=== PATIENT | male | born 1960 | race Caucasian/White ===

== ENCOUNTER 2016-11-18 21:05 | Emergency (ER) | payer MEDICARE ==
[2016-11-18 21:28] LABS: ABSOLUTE EOSINOPHILS # (AUTO) 0.1 10^3/uL (0.0-0.6); ABSOLUTE LYMPHOCYTES (AUTO) 1.8 10^3/uL (0.5-4.7); ABSOLUTE MONOCYTES (AUTO) 0.8 10^3/uL (0.1-1.4); ABSOLUTE NEUT (AUTO) 8.6 10^3/uL (1.7-8.2); BASOPHILS % (AUTO) 0.4 % (0-2); EOSINOPHILS % (AUTO) 0.8 % (0-6); HEMATOCRIT 49.6 % (37.9-51.0); HEMOGLOBIN 16.5 g/dL (13.5-17.0); HGB HCT DIFFERENCE -0.1; LYMPHOCYTES % (AUTO) 15.9 % (13-45); MEAN CORPUSCULAR HGB CONC 33.2 g/dL (32.0-36.0); MEAN CORPUSCULAR VOLUME 84 fl (80-97); MONOCYTES % (AUTO) 7.3 % (3-13); RED CELL DISTRIBUTION WIDTH 13.3 % (11.5-14.0); SEGMENTED NEUTROPHILS % (AUTO) 75.6 % (42-78); WHITE BLOOD COUNT 11.4 10^3/uL (4.0-10.5)
[2016-11-18] MEDS ORDERED: ASPIRIN 81 MG TABLET, CHEWABLE PO ONE (21:33)
[2016-11-18 21:43] LABS: ALANINE AMINOTRANSFERASE 56 U/L (21-72); ALBUMIN 4.4 g/dL (3.5-5.0); ALKALINE PHOSPHATASE 101 U/L (38-126); ANION GAP 15 (5-19); ASPARTATE AMINO TRANSFERASE 40 U/L (17-59); BILIRUBIN,DIRECT 0.4 mg/dL (0.0-0.4); BILIRUBIN,TOTAL 0.8 mg/dL (0.2-1.3); BLOOD UREA NITROGEN 9 mg/dL (7-20); CARBON DIOXIDE 26 mmol/L (22-30); CHLORIDE 98 mmol/L (98-107); CREATINE KINASE 62 U/L (55-170); GLUCOSE 117 mg/dL (75-110); POTASSIUM 3.6 mmol/L (3.6-5.0); TOTAL PROTEIN 7.8 g/dL (6.3-8.2)
[2016-11-18 22:04] LABS: CREATINE KINASE MB < 0.22 ng/mL (<4.55); TROPONIN I < 0.012 ng/mL
[2016-11-18] MEDS ORDERED: KETOROLAC TROMETHAMINE INJ/PF 30 MG/1 ML SDV IV ONE (22:20)
--- NOTE | 2016-11-18 22:21 | ER Document Report ---
ED General - General Chief Complaint: Chest Pain Stated Complaint: CHEST PAIN Notes: Patient is a 56-year-old male with past medical history of hypertension who presents with 3 days of intermittent left-sided chest pain. Describes it as a dull, aching pain. Nothing improves or worsens the pain. Denies a history of similar symptoms in the past. He has not seen his primary care doctor regarding these concerns. He denies any associated shortness of breath but does note that when he takes a deep breath this does worsen the pain. He has not had diaphoresis with the pain but states he has had one episode of vomiting. No history of known coronary artery disease, DVT or pulmonary embolus. TRAVEL OUTSIDE OF THE [place] IN LAST 30 DAYS: No - Related Data Allergies/Adverse Reactions: lansoprazole [From Prevacid] Allergy (Verified 01/03/15 12:05) contrast dye Allergy (Uncoded 01/03/15 12:05) Past Medical History - General Information source: Patient - Social History Smoking Status: Never Smoker Frequency of alcohol use: None Drug Abuse: None Family History: Reviewed & Not Pertinent - Past Medical History Cardiac Medical History: Reports: Hx Hypertension GI Medical History: Reports: Hx Gastroesophageal Reflux Disease, Hx Hiatal Hernia Musculoskeltal Medical History: Reports Hx Arthritis, Reports Hx Musculoskeletal Deformity, Reports Hx Musculoskeletal Trauma Skin Medical History: Reports Hx Cellulitis Past Surgical History: Reports: Hx Adenoidectomy, Hx Cardiac Catheterization, Hx Inguinal Hernia, Hx Myringotomy, Hx Orthopedic Surgery - right knee, Hx Tonsillectomy - Immunizations Immunizations up to date: No Hx Diphtheria, Pertussis, Tetanus Vaccination: No Review of Systems - Review of Systems Notes: Constitutional: Negative for fever. HENT: Negative for sore throat. Eyes: Negative for visual changes. Cardiovascular: Positive for chest pain. Respiratory: Negative for shortness of breath. Gastrointestinal: Negative for abdominal pain, vomiting or diarrhea. Genitourinary: Negative for dysuria. Musculoskeletal: Negative for back pain. Skin: Negative for rash. Neurological: Negative for headaches, weakness or numbness. 10 point ROS negative except as marked above and in HPI. Physical Exam - Vital signs Vitals: Temp 98.3 F 11/18/16 21:07 Interpretation: Tachycardic Notes: PHYSICAL EXAMINATION: GENERAL: Well-appearing, well-nourished and in no acute distress. HEAD: Atraumatic, normocephalic. EYES: Pupils equal round and reactive to light, extraocular movements intact, sclera anicteric, conjunctiva are normal. ENT: nares patent, oropharynx clear without exudates. Moist mucous membranes. NECK: Normal range of motion, supple without lymphadenopathy LUNGS: Breath sounds clear to auscultation bilaterally and equal. No wheezes rales or rhonchi. HEART: Regular rate and rhythm without murmurs ABDOMEN: Soft, nontender, normoactive bowel sounds. No guarding, no rebound. No masses appreciated. EXTREMITIES: Normal range of motion, no pitting or edema. No cyanosis. NEUROLOGICAL: No focal neurological deficits. Moves all extremities spontaneously and on command. PSYCH: Normal mood, normal affect. SKIN: Warm, Dry, normal turgor, no rashes or lesions noted. Course - Re-evaluation Re-evalutation: 11/18/16 22:20 Presentation of chest pain in an otherwise well appearing patient. Low clinical suspicion for ACS given clinical history, exam, EKG without ST elevations or depressions, and negative initial troponin. HEART score less than or equal to 3. I have a mild level of concern for possible pulmonary embolus given patient' s tachycardia and staying that the pain is worsened by deep inspiration. A d- dimer assay will be sent to better clarify and if this is negative will not proceed with any further testing. CXR without evidence of pneumothorax or pneumonia. No widened mediastinum. Aortic dissection also seems unlikely given history, symmetric pulses, CXR, and vitals. HEART Score: History:0 EC Age:1 Risk Factors:1 Troponin:0 Total: 2 11/19/16 02:11 D-dimer was elevated to 0.[address] of the chest was obtained. This is noted to be normal without any evidence of an acute pulmonary embolus. Repeat troponin is likewise normal. Final assessment: Chest pain in a patient without evidence of cardiac or other serious etiology on workup today. I discussed with patient that, based on their age, risk factors and emergency department testing today, the likelihood that their symptoms are related to a heart attack is very low (estimated risk of heart attack or over the next 30 days of less than 1%). The patient demonstrates decision making capacity and has verbalized an understanding of these risks to me. Based on this, the patient has chosen to follow-up as an outpatient. Usual chest pain return precautions reviewed. The patient states understanding and agreement with this plan. - Vital Signs Vital signs: Temp Pulse Resp BP Pulse Ox 98.3 F 15 160/92 H 99 11/18/16 21:07 11/18/16 23:01 11/18/16 23:01 11/18/16 23:01 - Laboratory Result Diagrams: 11/18/16 21:15 11/18/16 21:15 Laboratory results interpreted by me: 11/18/16 11/18/16 11/18/16 21:15 21:15 21:15 WBC 11.4 H RBC 5.90 H Absolute Neutrophils 8.6 H D-Dimer 0.61 H Glucose 117 H - Diagnostic Test Radiology reviewed: Image reviewed, Reports reviewed Radiology results interpreted by me: 11/18/16 22:21 Chest x-ray: No acute infiltrate or pneumothorax - EKG Interpretation by Me Additional EKG results interpreted by me: 11/18/16 22:21 Sinus tachycardia. Rate 111. No ST elevations or depressions. QTC is 462. Discharge - Discharge Clinical Impression: Chest pain Qualifiers: Chest pain type: unspecified Qualified Code(s): R07.9 - Chest pain, unspecified Condition: Good Disposition: HOME, SELF-CARE Additional Instructions: You were seen today for chest pain. The exact cause of your pain is unclear. However, based on your cardiac enzyme testing, chest x-ray, and EKG it does not appear that it is from an immediately life-threatening cause at this time. Although your testing here is normal is critical that you follow-up with your primary care physician for continued evaluation of this chest pain and possible stress testing. I recommended you see your physician within the next 24-48 hours to be evaluated for consideration of a stress test. Please return to emergency department immediately if you have worsening of your chest pain, shortness of breath, vomiting, become unable to exert yourself due to pain or difficulty breathing, you pass out, or have any pain that radiates into your arms, jaw, or back. Please also return if you have any additional symptoms that are concerning to you.
--- NOTE | 2016-11-18 22:41 | EKG REPORT ---
SEVERITY:- BORDERLINE ECG - SINUS TACHYCARDIA BORDERLINE T ABNORMALITIES, INFERIOR LEADS : Confirmed by: Toan Trujillo MD 18-Nov-2016 22:40:45
[2016-11-19] MEDS ORDERED: DIPHENHYDRAMINE HCL 50 MG/ML VIAL IV ONE (00:23)
[2016-11-19] MEDS ORDERED: FAMOTIDINE INJ/PF 20 MG/2 ML SDV IV ONE (00:28)
[2016-11-19] MEDS ORDERED: METHYLPREDNISOLONE INJ 125 MG/2 ML SDV IV ONE (00:28)
[2016-11-19 02:21] VITALS: BP 143/85
== END 2016-11-19 02:21 | disposition home or self-care (01) ==
LOC: ER 21:05
DX: R07.9 Chest pain, unspecified (principal); I10 Essential (primary) hypertension; Z91.041 Radiographic dye allergy status
CPT/HCPCS: 93005; 99285; 96374; 96375; 36415; 82553; 82550; 85025; 80053; 84484; 85379; 71010; 71275; 93010; J1200; J2930; J1885; S0028

== ENCOUNTER 2017-01-26 14:58 | Observation (INO) | payer MEDICARE ==
[2017-01-26 15:17] LABS: ABSOLUTE BASOPHILS # (AUTO) 0.1 10^3/uL (0.0-0.2); ABSOLUTE EOSINOPHILS # (AUTO) 0.1 10^3/uL (0.0-0.6); ABSOLUTE LYMPHOCYTES (AUTO) 1.3 10^3/uL (0.5-4.7); ABSOLUTE MONOCYTES (AUTO) 0.7 10^3/uL (0.1-1.4); ABSOLUTE NEUT (AUTO) 8.8 10^3/uL (1.7-8.2); BASOPHILS % (AUTO) 0.6 % (0-2); EOSINOPHILS % (AUTO) 0.9 % (0-6); HEMATOCRIT 44.1 % (37.9-51.0); HEMOGLOBIN 14.5 g/dL (13.5-17.0); HGB HCT DIFFERENCE -0.6; LYMPHOCYTES % (AUTO) 11.5 % (13-45); MEAN CORPUSCULAR HEMOGLOBIN 27.7 pg (27.0-33.4); MEAN CORPUSCULAR HGB CONC 32.9 g/dL (32.0-36.0); MEAN CORPUSCULAR VOLUME 84 fl (80-97); MONOCYTES % (AUTO) 6.3 % (3-13); RED BLOOD COUNT 5.24 10^6/uL (4.35-5.55); RED CELL DISTRIBUTION WIDTH 13.5 % (11.5-14.0); SEGMENTED NEUTROPHILS % (AUTO) 80.7 % (42-78)
--- NOTE | 2017-01-26 15:28 | ER Document Report ---
ED General - General Chief Complaint: Chest Pain Stated Complaint: CHEST PAIN Time Seen by Provider: 01/26/17 15:08 Notes: 57-year-old male with morbid obesity and hypertension which is untreated as well as a long smoking history presents with shortness of breath onset 3 days ago and with exertion worse with lying down and better with sitting up and associated with a dull chest pressure which is also exertional and better with sitting up. He describes "wet congestion" when he lies flat which wakes him up from sleep. He has had increasing leg swelling as well. He is currently chest pain-free. He was given nitro and aspirin in the ambulance. He did not say that this changed his symptoms. TRAVEL OUTSIDE OF THE [place] IN LAST 30 DAYS: No - Related Data Allergies/Adverse Reactions: lansoprazole [From Prevacid] Allergy (Verified 01/03/15 12:05) contrast dye Allergy (Uncoded 11/19/16 02:23) Hives Past Medical History - Social History Smoking Status: Former Smoker Family History: Reviewed & Not Pertinent - Past Medical History Cardiac Medical History: Reports: Hx Hypertension GI Medical History: Reports: Hx Gastroesophageal Reflux Disease, Hx Hiatal Hernia Musculoskeltal Medical History: Reports Hx Arthritis, Reports Hx Musculoskeletal Deformity, Reports Hx Musculoskeletal Trauma Skin Medical History: Reports Hx Cellulitis Past Surgical History: Reports: Hx Adenoidectomy, Hx Cardiac Catheterization, Hx Inguinal Hernia, Hx Myringotomy, Hx Orthopedic Surgery - right knee, Hx Tonsillectomy - Immunizations Immunizations up to date: No Hx Diphtheria, Pertussis, Tetanus Vaccination: No Physical Exam - Vital signs Vitals: Resp Pulse Ox 14 98 01/26/17 15:11 01/26/17 15:11 Course - Re-evaluation Re-evalutation: 01/26/17 15:28 57-year-old male with morbid obesity and hypertension which is untreated as well as smoking is a risk factor presents with recent onset exertional shortness of breath orthopnea paroxysmal nocturnal dyspnea and positional chest pressure. He is hypertensive in the ED. He is difficult to auscultate secondary to his morbid obesity. Believe he likely has either sent to medical hypertension or gradual onset new onset congestive heart failure. Must rule out acute coronary syndrome. EKG today shows no acute changes. Given his poor follow-up and lack of recent stress testing he should be admitted for echocardiogram and stress test. Will check BNP labs and troponin. Already got aspirin. Not currently symptomatic so will not treat hypertension at this time. 01/26/17 16:52 Clinically stable. EKG unremarkable. Troponin negative. BNP elevated, chest x -ray looks like cardiomegaly. Admitted to Dr. Quan on for new onset heart failure. - Vital Signs Vital signs: Temp Pulse Resp BP Pulse Ox 98.3 F 104 H 13 176/100 H 93 01/26/17 15:17 01/26/17 15:17 01/26/17 16:03 01/26/17 16:03 01/26/17 16:03 - Laboratory Result Diagrams: 01/26/17 15:10 01/26/17 15:40 Laboratory results interpreted by me: 01/26/17 01/26/17 01/26/17 15:10 15:40 15:40 WBC 11.0 H Seg Neutrophils % 80.7 H Lymphocytes % 11.5 L Absolute Neutrophils 8.8 H Glucose 118 H Creatine Kinase 44 L NT-Pro-B Natriuret Pep 1410 H - Diagnostic Test Radiology reviewed: Image reviewed, Reports reviewed - EKG Interpretation by Me EKG shows normal: Sinus rhythm Rate: Tachycardia When compared to previous EKG there are: No significant change Additional EKG results interpreted by me: 01/26/17 15:28 ST or T-wave changes Discharge - Discharge Clinical Impression: Congestive heart failure (CHF) Qualifiers: Congestive heart failure type: combined Congestive heart failure chronicity: acute Qualified Code(s): I50.41 - Acute combined systolic (congestive) and diastolic (congestive) heart failure Admitting Provider: Hospitalist Unit Admitted: [facility]
--- NOTE | 2017-01-26 15:53 | RADIOLOGY REPORT (SQ) ---
EXAM DESCRIPTION: CHEST SINGLE VIEW COMPLETED DATE/TIME: 01/26/2017 3:41 pm REASON FOR STUDY: bed 16 cp COMPARISON: 12/19/2016. NUMBER OF VIEWS: One view. TECHNIQUE: Single frontal radiographic view of the chest acquired. LIMITATIONS: None. FINDINGS: LUNGS AND PLEURA: No opacities, masses or pneumothorax. No pleural effusion. MEDIASTINUM AND HILAR STRUCTURES: No masses. Contour normal. HEART AND VASCULAR STRUCTURES: Heart enlarged without failure. Normal vasculature. BONES: No acute findings. HARDWARE: None in the chest. OTHER: No other significant finding. IMPRESSION: HEART ENLARGED WITHOUT FAILURE. NO OTHER SIGNIFICANT RADIOGRAPHIC FINDING IN THE CHEST. TECHNICAL DOCUMENTATION: JOB ID: [id number] [employer]- All Rights Reserved
[2017-01-26 16:25] LABS: ALANINE AMINOTRANSFERASE 27 U/L (21-72); ALBUMIN 3.7 g/dL (3.5-5.0); ALKALINE PHOSPHATASE 98 U/L (38-126); ANION GAP 13 (5-19); ASPARTATE AMINO TRANSFERASE 17 U/L (17-59); BILIRUBIN,DIRECT 0.3 mg/dL (0.0-0.4); BILIRUBIN,TOTAL 0.7 mg/dL (0.2-1.3); BLOOD UREA NITROGEN 20 mg/dL (7-20); CALCIUM 9.2 mg/dL (8.4-10.2); CARBON DIOXIDE 25 mmol/L (22-30); CHLORIDE 102 mmol/L (98-107); CREATINE KINASE 44 U/L (55-170); CREATININE RESULT 0.89 mg/dL (0.52-1.25); GLUCOSE 118 mg/dL (75-110); POTASSIUM 4.2 mmol/L (3.6-5.0); SODIUM 139.9 mmol/L (137-145); TOTAL PROTEIN 6.7 g/dL (6.3-8.2)
[2017-01-26 16:37] LABS: CREATINE KINASE MB 0.48 ng/mL (<4.55); TROPONIN I 0.026 ng/mL
[2017-01-26] MEDS ORDERED: ACETAMINOPHEN 325 MG TABLET PO PRN (17:47)
[2017-01-26] MEDS ORDERED: ONDANSETRON HCL INJ/PF 4 MG/2 ML SDV IV PRN (17:47)
[2017-01-26] MEDS ORDERED: LEVALBUTEROL HCL NEB 1.25 MG/3 ML AMPUL NEB PRN (17:47)
[2017-01-26] MEDS ORDERED: NITROGLYCERIN 0.4 MG/TAB 25 TAB/BOTTLE SL PRN (17:55)
[2017-01-26] MEDS ORDERED: HYDRALAZINE HCL INJ/PF 20 MG/1 ML SDV IV PRN (17:55)
--- NOTE | 2017-01-26 18:09 | PDOC H&P ---
History of Present Illness Admission Date/PCP: 01/26/17 17:01 Patient complains of: Chest pain and dyspnea on exertion History of Present Illness: CR TODD is a 57 year old male with morbid obesity as well as hypertension not taking any medication other than ibuprofen [id number] has been dealing with shortness of breath for a few days. Shortness of breath is noted on exertion but not at rest. There is associated cough but with minimal phlegm. There is intermittent chest discomfort and tightness with occasional wheezing. There is no diaphoresis, nausea or vomiting, chills or fever, nor abdominal pain. He denies any sore throat, chills or fever or sinus congestion as well. Patient at times will have paroxysms of coughing noted. Sometimes it is pruritic. Patient could not lay flat in bed. No increasing lower extremity edema however. Patient presents to the emergency room for evaluation due to worsening symptoms and was referred for admission. Past Medical History Past Medical History: Medication reconciliation pending verification from the patient's pharmacist. Cardiac Medical History: Reports: Hypertension Endocrine Medical History: Reports: Obesity GI Medical History: Reports: Gastroesophageal Reflux Disease, Hiatal Hernia Musculoskeltal Medical History: Reports: Arthritis Past Surgical History Past Surgical History: Reports: Cardiac Catheterization, Herniorrhaphy, Orthopedic Surgery - right knee, Tonsillectomy, Other - Carpal tunnel surgery, Social History Information Source: Patient Smoking Status: Former Smoker Frequency of Alcohol Use: None Hx Recreational Drug Use: No Drugs: None Hx Prescription Drug Abuse: No Family History Family History: CAD, CVA, Hypertension Parental Family History Reviewed: Yes Children Family History Reviewed: Yes Sibling(s) Family History Reviewed.: Yes Medication/Allergy Home Medications: Amlodipine Besylate 10 mg PO DAILY 08/30/13 Duloxetine HCl [Cymbalta] 60 mg PO DAILY 08/30/13 Lisinopril/Hydrochlorothiazide [Lisinopril-Hctz 20-12.5 mg Tab] 1 tab PO DAILY 08/30/13 Methocarbamol 750 mg PO BID PRN 08/30/13 Ranitidine HCl [Acid Payroll Examiner] 150 mg PO DAILY 08/30/13 Cholestyramine/Aspartame [Questran Light 4 gm Packet] 4 gm PO MEALSHS #60 packet 09/04/13 Hydrocodone/Acetaminophen [[place] 10-325 mg Tablet] 2 tab PO Q4H PRN #30 tablet 09/04/13 Hydrocodone Bit/Acetaminophen [Hydrocodon-Acetaminophn 10-325] 1 - 2 each PO Q6HP PRN #60 tablet 01/03/15 Allergies/Adverse Reactions: lansoprazole [From Prevacid] Allergy (Verified 01/03/15 12:05) contrast dye Allergy (Uncoded 11/19/16 02:23) Hives Review of Systems Constitutional: ABSENT: chills, fever(s), headache(s), night sweats, weakness, weight gain, weight loss Eyes: ABSENT: visual disturbances Ears: ABSENT: hearing changes Nose, Mouth, and Throat: ABSENT: headache(s), mouth pain, sore throat, vertigo Cardiovascular: PRESENT: chest pain, dyspnea on exertion, edema - Chronic, orthropnea. ABSENT: palpitations Respiratory: PRESENT: cough, dyspnea. ABSENT: hemoptysis, sputum Gastrointestinal: ABSENT: abdominal pain, constipation, diarrhea, hematemesis, hematochezia, melena, nausea, vomiting Genitourinary: ABSENT: dysuria, hematuria Musculoskeletal: ABSENT: joint swelling Integumentary: ABSENT: pruritus, rash, wounds Neurological: ABSENT: abnormal gait, abnormal speech, confusion, dizziness, focal weakness, syncope Psychiatric: ABSENT: anxiety, depression, homidical ideation, suicidal ideation Endocrine: ABSENT: cold intolerance, heat intolerance, polydipsia, polyuria Hematologic/Lymphatic: ABSENT: easy bleeding, easy bruising Allergic/Immunologic: ABSENT: seasonal rhinorrhea Physical Exam Vital Signs: Temp Pulse Resp BP Pulse Ox 98.3 F 104 H 13 176/100 H 93 01/26/17 15:17 01/26/17 15:17 01/26/17 16:03 01/26/17 16:03 01/26/17 16:03 General appearance: PRESENT: no acute distress, cooperative, morbidly obese Head exam: PRESENT: atraumatic, normocephalic Eye exam: PRESENT: conjunctiva pink, EOMI, PERRLA. ABSENT: scleral icterus Ear exam: PRESENT: normal external ear exam. ABSENT: drainage Mouth exam: PRESENT: moist, neck supple, tongue midline Throat exam: ABSENT: post pharyngeal erythema, tonsillar erythema, tonsillar exudate Neck exam: ABSENT: carotid bruit, JVD, lymphadenopathy, thyromegaly Respiratory exam: PRESENT: clear to auscultation jaime. ABSENT: rales, rhonchi, wheezes Cardiovascular exam: PRESENT: RRR, systolic murmur - Left sternal border. ABSENT: diastolic murmur, rubs Pulses: PRESENT: normal dorsalis pedis pul Vascular exam: PRESENT: normal capillary refill GI/Abdominal exam: PRESENT: normal bowel sounds, soft. ABSENT: distended - Obese, guarding, mass, organolmegaly, rebound, tenderness Rectal exam: PRESENT: deferred Extremities exam: PRESENT: full ROM, other - Trace lower extremity edema bilateral, Homans sign negative. ABSENT: calf tenderness, clubbing Neurological exam: PRESENT: alert, awake, oriented to person, oriented to place , oriented to time, oriented to situation Psychiatric exam: PRESENT: appropriate affect, normal mood. ABSENT: homicidal ideation, suicidal ideation Skin exam: PRESENT: dry, intact, warm. ABSENT: cyanosis, rash Results Impressions: Chest X-Ray 01/26/17 15:04 IMPRESSION: HEART ENLARGED WITHOUT FAILURE. NO OTHER SIGNIFICANT RADIOGRAPHIC FINDING IN THE CHEST. Assessment & Plan - Diagnosis (1) Chest pain Qualifiers: Chest pain type: unspecified Qualified Code(s): R07.9 - Chest pain, unspecified Is this a current diagnosis for this admission?: Yes (2) Shortness of breath Is this a current diagnosis for this admission?: Yes (3) Essential hypertension Is this a current diagnosis for this admission?: Yes (4) Morbid obesity Is this a current diagnosis for this admission?: Yes (5) Gastroesophageal reflux disease Qualifiers: Esophagitis presence: without esophagitis Qualified Code(s): K21.9 - Gastro-esophageal reflux disease without esophagitis Is this a current diagnosis for this admission?: Yes (6) Osteoarthritis of both knees Qualifiers: Osteoarthritis type: unspecified Qualified Code(s): M17.0 - Bilateral primary osteoarthritis of knee Is this a current diagnosis for this admission?: Yes - Time Time Spent: 50 to 70 Minutes Within: within 24 hours - Plan Summary Plan Summary: The patient will be admitted to observation. We will obtain a d-dimer, if elevated a VQ scan will be obtained. In the meantime we will check serial cardiac enzymes 3 and obtain an echocardiogram. I will resume the patient JESSIE inhibitor, begin nitroglycerin and aspirin. I will likewise put the patient on H2 receptor archana. DVT prophylaxis with Lovenox will be placed. Supplemental oxygen will be given. Further testing depends on the initial evaluation as outlined above.
[2017-01-26] MEDS ORDERED: LISINOPRIL 10 MG TABLET PO ONE (18:15)
[2017-01-26] MEDS: NITROGLYCERIN 2% OINTMENT 1 GM PACKET TP SCH (18:52)
[2017-01-26] MEDS: DOCUSATE SODIUM 100 MG CAPSULE PO SCH (18:52)
--- NOTE | 2017-01-26 19:59 | EKG REPORT ---
SEVERITY:- OTHERWISE NORMAL ECG - SINUS TACHYCARDIA : Confirmed by: Toan Trujillo MD 26-Jan-2017 19:58:31
--- NOTE | 2017-01-26 21:35 | RADIOLOGY REPORT (SQ) ---
EXAM DESCRIPTION: NM LUNG VENT/PERF SCAN COMPLETED DATE/TIME: 01/26/2017 9:17 pm REASON FOR STUDY: CHEST PAIN, SOB UPON EXERTION COMPARISON: Chest x-ray dated 01/26/2017. RADIONUCLIDE AND DOSE: 5.28 millicuries TC-99m MAA Intravenous 31.8 millicuries TC-99m DTPA Inhaled aerosol TECHNIQUE: Anterior and posterior views of the lungs acquired post ventilation of DTPA aerosol. Ant erior, posterior, and oblique views of the lungs acquired following injection of MAA. LIMITATIONS: None. FINDINGS: VENTILATION: Symmetric and homogeneous distribution of DTPA aerosol during ventilatory pha se. No significant areas of photopenia. PERFUSION: Perfusion images with normal homogenous activity and no wedge-shaped or segmental defects. No ventilation-perfusion mismatches. OTHER: No other significant finding. IMPRESSION: NORMAL VENTILATION-PERFUSION LUNG SCAN. NEGATIVE FOR PULMONARY EMBOLI. TECHNICAL DOCUMENTATION: JOB ID: [id number] [employer]- All Rights Reserved
[2017-01-26] MEDS: ASPIRIN 81 MG TABLET, CHEWABLE PO SCH (21:59)
[2017-01-26] MEDS: FAMOTIDINE INJ/PF 20 MG/2 ML SDV IV SCH (21:59)
[2017-01-26] MEDS: FUROSEMIDE INJ/PF 40 MG/4 ML SDV IV SCH (22:00)
[2017-01-27] MEDS: NITROGLYCERIN 2% OINTMENT 1 GM PACKET TP SCH ×2 (00:24→05:45)
[2017-01-27] MEDS: DOCUSATE SODIUM 100 MG CAPSULE PO SCH ×2 (09:26→17:47)
[2017-01-27] MEDS: FAMOTIDINE INJ/PF 20 MG/2 ML SDV IV SCH ×2 (09:26→22:42)
[2017-01-27] MEDS: FUROSEMIDE INJ/PF 40 MG/4 ML SDV IV SCH ×2 (09:26→22:42)
[2017-01-27] MEDS: LISINOPRIL 10 MG TABLET PO SCH (09:27)
[2017-01-27] MEDS: ENOXAPARIN SODIUM INJ 40 MG/0.4 ML DISP.SYRIN SUBCUT SCH (09:27)
[2017-01-27] MEDS: ISOSORBIDE MONONITRATE 30 MG TAB.ER.24H PO SCH (11:19)
[2017-01-27] MEDS ORDERED: METOPROLOL TARTRATE 25 MG TABLET PO ONE (12:00)
--- NOTE | 2017-01-27 14:04 | PDOC PROGRESS REPORT ---
Subjective Progress Note for:: 01/27/17 Subjective:: Slightly improved. Denies CP. [place] improved. Intermittent wheezing but no PND, orthopnea, diaphoresis, nor dizziness. Physical Exam Vital Signs: Temp Pulse Resp BP Pulse Ox 98.2 F 93 18 151/87 H 93 01/27/17 11:32 01/27/17 11:32 01/27/17 11:32 01/27/17 11:32 01/27/17 11:32 Intake & Output 01/26/17 01/27/17 01/28/17 06:59 06:59 06:59 Intake Total 700 Balance 700 Weight 165.1 kg General appearance: PRESENT: no acute distress, morbidly obese Head exam: PRESENT: normocephalic Eye exam: PRESENT: EOMI Mouth exam: PRESENT: moist, neck supple Neck exam: ABSENT: JVD Respiratory exam: PRESENT: clear to auscultation jaime - anteriorly B/L, decreased breath sounds - post B/L Cardiovascular exam: PRESENT: RRR. ABSENT: gallop GI/Abdominal exam: PRESENT: soft. ABSENT: distended, tenderness Extremities exam: PRESENT: other - trace edema Neurological exam: PRESENT: alert, awake, oriented to situation Skin exam: PRESENT: dry, warm. ABSENT: cyanosis Results Laboratory Results: 01/27/17 03:37 TSH 2.99 01/26/17 01/26/17 01/26/17 19:43 19:43 23:41 Creatine Kinase 43 L 56 Troponin I 0.023 01/26/17 01/27/17 01/27/17 23:41 03:37 03:37 Creatine Kinase 54 L Troponin I 0.029 0.025 Impressions: Chest X-Ray 01/26/17 15:04 IMPRESSION: HEART ENLARGED WITHOUT FAILURE. NO OTHER SIGNIFICANT RADIOGRAPHIC FINDING IN THE CHEST. Lung Scan-VQ NM 01/26/17 19:31 IMPRESSION: NORMAL VENTILATION-PERFUSION LUNG SCAN. NEGATIVE FOR PULMONARY EMBOLI. Assessment & Plan - Diagnosis (1) Chest pain Qualifiers: Chest pain type: unspecified Qualified Code(s): R07.9 - Chest pain, unspecified Is this a current diagnosis for this admission?: Yes (2) Shortness of breath Is this a current diagnosis for this admission?: Yes (3) Essential hypertension Is this a current diagnosis for this admission?: Yes (4) Morbid obesity Is this a current diagnosis for this admission?: Yes (5) Gastroesophageal reflux disease Qualifiers: Esophagitis presence: without esophagitis Qualified Code(s): K21.9 - Gastro-esophageal reflux disease without esophagitis Is this a current diagnosis for this admission?: Yes (6) Osteoarthritis of both knees Qualifiers: Osteoarthritis type: unspecified Qualified Code(s): M17.0 - Bilateral primary osteoarthritis of knee Is this a current diagnosis for this admission?: Yes - Time Time Spent with patient: 15-24 minutes - Plan Summary Plan Summary: D/C NTP. Begin imdur and B-archana. Try advair. Stress test as out-patient in 48 to 72 hrs.
[2017-01-27 14:45] LABS: HEMATOCRIT 43.2 % (37.9-51.0); HEMOGLOBIN 14.2 g/dL (13.5-17.0); HGB HCT DIFFERENCE -0.6; MEAN CORPUSCULAR HEMOGLOBIN 27.8 pg (27.0-33.4); MEAN CORPUSCULAR HGB CONC 32.9 g/dL (32.0-36.0); MEAN CORPUSCULAR VOLUME 84 fl (80-97); RED BLOOD COUNT 5.12 10^6/uL (4.35-5.55); RED CELL DISTRIBUTION WIDTH 13.7 % (11.5-14.0)
[2017-01-27] MEDS: FLUTICASONE/SALMETEROL DISKUS 250-50 MCG/DOSE IH SCH (17:46)
[2017-01-27] MEDS: ASPIRIN 81 MG TABLET, CHEWABLE PO SCH (22:42)
[2017-01-27] MEDS: METOPROLOL TARTRATE 25 MG TABLET PO SCH (22:42)
[2017-01-28] MEDS: FLUTICASONE/SALMETEROL DISKUS 250-50 MCG/DOSE IH SCH (05:29)
--- NOTE | 2017-01-28 09:43 | Physician Advisory Note ---
Physician Advisor ProgressNote .: Pursuant to the plan for [facility], I have reviewed the medical record for this patient. Physician Advisor Statement: Please document: 1. Reason pt couldn't go home 01/27 - need to be explicit. "Sx better but not back to baseline"? "Continued to need further IV diuretic because ____"?, "I was concerned about___"?, .... 2. If reason pt kept 01/27 was clinical need/concern (not just pt/dr convenience ), pt approp to change to Inpt status - after documenting above. Thanks! CK
[2017-01-28] MEDS: ENOXAPARIN SODIUM INJ 40 MG/0.4 ML DISP.SYRIN SUBCUT SCH (10:28)
[2017-01-28] MEDS: FUROSEMIDE INJ/PF 40 MG/4 ML SDV IV SCH (10:28)
[2017-01-28] MEDS: METOPROLOL TARTRATE 25 MG TABLET PO SCH (10:29)
[2017-01-28] MEDS: DOCUSATE SODIUM 100 MG CAPSULE PO SCH (10:29)
[2017-01-28] MEDS: FAMOTIDINE INJ/PF 20 MG/2 ML SDV IV SCH (10:29)
[2017-01-28] MEDS: LISINOPRIL 10 MG TABLET PO SCH (10:30)
[2017-01-28] MEDS: ISOSORBIDE MONONITRATE 30 MG TAB.ER.24H PO SCH (11:44)
--- NOTE | 2017-01-28 13:25 | XCELERA REPORT ---
[address] [address] Transthoracic Echocardiogram Report Name: CR TODD Age: 57 yrs Gender: Male : 1960 Patient Status: Inpatient Patient Location: [id number]\S\326\S\A Study Date: 01/28/2017 10:16 AM Height: 70 in Weight: 375 lb BSA: 2.7 m2 Procedure: A two-dimensional transthoracic echocardiogram with color flow and Doppler was performed. The study was technically difficult with many images being suboptimal in quality. Reason For Study: SOB / ELEVATED BNP History: SOB / ELEVATED BNP. Ordering Physician: ELROY SIMPSON Performed By: Ashwini Delgado Interpretation Summary The left ventricle is moderately dilated. There is mild concentric left ventricular hypertrophy. LV EF is 45% Left ventricular systolic function is mildly reduced. Doppler measurements suggest impaired left ventricular relaxation, which is associated with grade I/IV or mild diastolic dysfunction There is mild global hypokinesis of the left ventricle. There is no thrombus. The right atrium is normal. The left atrium is moderately dilated. The interatrial septum is intact with no evidence for an atrial septal defect. There is no evidence of mitral valve prolapse. There is no vegetation seen on the mitral valve. There is no mitral valve stenosis. There is a trace amount of mitral regurgitation There is no aortic valvular vegetation. There is no aortic valve stenosis There is no LVOT obstruction. No aortic regurgitation is present. There is no tricuspid stenosis. Right ventricular systolic pressure is normal. RVSP is 28 mm of Hg , with RA mean of 10. There is no pericardial effusion. MMode/2D Measurements \T\ Calculations RVDd: 3.8 cm LVIDd: 7.1 cm FS: 26.7 % EPSS: 1.7 cm IVSd: 1.2 cm LVIDs: 5.2 cm EDV(Teich): 264.1 ml LVPWd: 1.2 cm ESV(Teich): 130.1 ml EF(Teich): 50.7 % Ao root diam: 3.1 cm Ao root area: 7.5 cm2 LA dimension: 4.7 cm Doppler Measurements \T\ Calculations MV E max dennise: MV P1/2t max dennise: Ao V2 max: LV V1 max P.9 cm/sec 80.9 cm/sec 152.6 cm/sec 5.4 mmHg MV A max dennise: MV P1/2t: 51.5 msec Ao max PG: LV V1 max: 109.1 cm/sec MVA(P1/2t): 4.3 cm2 9.3 mmHg 116.0 cm/sec MV E/A: 0.74 MV dec slope: 460.6 cm/sec2 PA V2 max: TR max dennise: 103.2 cm/sec 213.9 cm/sec PA max P.3 mmHgTR max P.3 mmHg Left Ventricle The left ventricle is moderately dilated. There is mild concentric left ventricular hypertrophy. LV EF is 45%. Left ventricular systolic function is mildly reduced. Doppler measurements suggest impaired left ventricular relaxation, which is associated with grade I/IV or mild diastolic dysfunction. There is mild global hypokinesis of the left ventricle. There is no thrombus. There is no ventricular septal defect visualized. Right Ventricle The right ventricle is not well visualized secondary to technical limitations. Atria The right atrium is normal. The left atrium is moderately dilated. The interatrial septum is intact with no evidence for an atrial septal defect. Mitral Valve There is no evidence of mitral valve prolapse. There is no vegetation seen on the mitral valve. There is no mitral valve stenosis. There is a trace amount of mitral regurgitation. Aortic Valve There is no aortic valvular vegetation. There is no aortic valve stenosis. There is no LVOT obstruction. No aortic regurgitation is present. Tricuspid Valve There is no tricuspid stenosis. There is a trace amount of tricuspid regurgitation. Right ventricular systolic pressure is normal. RVSP is 28 mm of Hg , with RA mean of 10. Pulmonic Valve There is no pulmonic valvular stenosis. There is no pulmonic valvular regurgitation. Great Vessels The aortic root is normal size. Effusions There is no pericardial effusion. : ELROY SIMPSON > Sruthi Laureano
--- NOTE | 2017-01-28 16:13 | PDOC DISCHARGE SUMMARY ---
General - Admit/Disc Date/PCP Admission Date/Primary Care Provider: 01/26/17 17:47 Discharge Date: 01/28/17 - Discharge Diagnosis (1) Chest pain Is this a current diagnosis for this admission?: Yes (2) Shortness of breath Is this a current diagnosis for this admission?: Yes (3) Essential hypertension Is this a current diagnosis for this admission?: Yes (4) Morbid obesity Is this a current diagnosis for this admission?: Yes (5) Gastroesophageal reflux disease Is this a current diagnosis for this admission?: Yes (6) Osteoarthritis of both knees Is this a current diagnosis for this admission?: Yes - Additional Information Resuscitation Status: Full Code Discharge Diet: Cardiac - Low fat, low salt Discharge Activity: Activity As Tolerated, Balance Activity w/Rest Home Medications: Multivitamin [Daily Multiple Vitamin] 1 tab PO DAILY 01/27/17 Ranitidine HCl [Zantac 150 mg Tablet] 300 mg PO Q12 01/27/17 Aspirin [Aspirin 81 mg Chewable Tablet] 81 mg PO QHS tab.chew 01/28/17 Budesonide/Formoterol Fumarate [Symbicort Hfa 160-4.5 Mcg Inhaler 6 gm] 1 puff IH Q12 #1 inhaler 01/28/17 Furosemide [Lasix] 40 mg PO BID #60 tablet 01/28/17 Lisinopril [Prinivil 10 mg Tablet] 10 mg PO DAILY #30 tablet 01/28/17 Metoprolol Tartrate [Lopressor 25 mg Tablet] 25 mg PO Q12 #60 tablet 01/28/17 Nitroglycerin [Nitrostat 0.4 mg (1/150 Gr) Tabs 25/Bottle] 1 tab SL Q5MP PRN #1 bottle 01/28/17 Additional Information: Stress test as outpatient with Dr. Laureano in 2 days. History of Present Illness Patient complains of: Dyspnea on exertion and chest pain History of Present Illness: CR TODD is a 57 year old male with morbid obesity as well as hypertension not taking any medication other than ibuprofen [id number] has been dealing with shortness of breath for a few days. Shortness of breath is noted on exertion but not at rest. There is associated cough but with minimal phlegm. There is intermittent chest discomfort and tightness with occasional wheezing. There is no diaphoresis, nausea or vomiting, chills or fever, nor abdominal pain. He denies any sore throat, chills or fever or sinus congestion as well. Patient at times will have paroxysms of coughing noted. Sometimes it is pruritic. Patient could not lay flat in bed. No increasing lower extremity edema however. Patient presents to the emergency room for evaluation due to worsening symptoms and was referred for admission. Hospital Course Hospital Course: The patient was admitted to [facility] Under observation. Cardiac enzymes were obtained and they were negative for myocardial infarction. Supplemental oxygen was given. Patient was placed on aspirin. DVT prophylaxis w/ lovenox was placed. chest x-ray did not reveal any findings of fluid overload. The patient blood pressure however was elevated. He was started on beta-archana, he was continued on JESSIE inhibitor lisinopril, and nitrates were given as well. Diuretics were also given. With above measure the patient slightly improved. VQ scan of the lungs was performed showing no evidence of pulmonary embolism. A 2D echocardiogram was done showing an ejection fraction of 45%. The patient was begun on bronchodilators with Advair and reports improvement as well. The patient just had a VQ scan therefore unable to perform a stress test in the next 48-72 hours and the patient declined to stay in the hospital that long. He requested to be discharged and have it done on an outpatient basis. the patient improved. Shortness of breath on exertion improved. The rest of the hospital stays unremarkable. His case was briefly discussed with cardiology and reports he can follow-up out patient w/ him and have stress test done on sat. 01/30/17. Physical Exam Vital Signs: Temp Pulse Resp BP Pulse Ox 97.7 F 76 20 126/67 H 96 01/28/17 13:02 01/28/17 14:00 01/28/17 13:02 01/28/17 13:02 01/28/17 13:02 Intake & Output 01/27/17 01/28/17 01/29/17 06:59 06:59 06:59 Intake Total 700 2323 946 Balance 700 2323 946 Weight 165.1 kg 163.5 kg 163.5 kg General appearance: PRESENT: no acute distress, morbidly obese Head exam: PRESENT: normocephalic Eye exam: PRESENT: EOMI Mouth exam: PRESENT: moist, neck supple Neck exam: ABSENT: JVD Respiratory exam: PRESENT: clear to auscultation jaime. ABSENT: rhonchi, wheezes Cardiovascular exam: PRESENT: RRR. ABSENT: gallop GI/Abdominal exam: PRESENT: normal bowel sounds, soft. ABSENT: distended - Obese Extremities exam: PRESENT: other - Trace lower extremity edema bilateral Neurological exam: PRESENT: alert, awake, oriented to person, oriented to place , oriented to time, oriented to situation Skin exam: PRESENT: dry, warm. ABSENT: cyanosis Results Laboratory Results: 01/27/17 14:35 01/26/17 01/26/17 01/26/17 19:43 19:43 23:41 Creatine Kinase 43 L 56 Troponin I 0.023 01/26/17 01/27/17 01/27/17 23:41 03:37 03:37 Creatine Kinase 54 L Troponin I 0.029 0.025 Impressions: Chest X-Ray 01/26/17 15:04 IMPRESSION: HEART ENLARGED WITHOUT FAILURE. NO OTHER SIGNIFICANT RADIOGRAPHIC FINDING IN THE CHEST. Lung Scan[facility] 01/26/17 19:31 IMPRESSION: NORMAL VENTILATION-PERFUSION LUNG SCAN. NEGATIVE FOR PULMONARY EMBOLI. Qualifiers PATEINT BEING DISCHARGED WITH ANY OF THE FOLLOWING DIAGNOSIS?: No Plan Discharge Plan: Follow-up with primary care physician in 1 week. Follow-up with Dr. Joe in 2 days for stress test. Time Spent: Less than 30 Minutes
[2017-01-28 16:17] VITALS: BP 172/101
== END 2017-01-28 17:50 | disposition home or self-care (01) ==
LOC: ER 14:58 → EH 17:01 → UNDOADMIN 17:01 → EH 17:47 → INTOOBSV 17:47 → 3S 19:08
PROVIDERS: ADMIT Family Medicine; ATTEND Family Medicine
DX: R07.89 Other chest pain (principal); R06.02 Shortness of breath; I10 Essential (primary) hypertension; E66.01 Morbid (severe) obesity due to excess calories; K21.9 Gastro-esophageal reflux disease without esophagitis; M17.0 Bilateral primary osteoarthritis of knee; R06.09 Other forms of dyspnea; R05 Cough; R60.0 Localized edema; R06.2 Wheezing; R06.01 Orthopnea; I51.7 Cardiomegaly; Z79.899 Other long term (current) drug therapy; Z98.890 Other specified postprocedural states; Z87.891 Personal history of nicotine dependence; Z82.49 Family history of ischemic heart disease and other diseases of the circulatory system; Z79.891 Long term (current) use of opiate analgesic; Z68.43 Body mass index [BMI] 50.0-59.9, adult
CPT/HCPCS: 93005; 99285; 36415 ×2; 82553; 82550 ×2; 84443; 85025; 85027; 80053; 84484 ×2; 85379; 83880; 93306; 71010; 78582; 93010; G0378 ×4; A9540; A9567; A9270 ×12; J1940 ×3; J1650 ×2; J3490 ×4; S0028 ×3; Q9969

== ENCOUNTER 2018-03-20 03:43 | Observation (INO) | payer MEDICARE ==
[2018-03-20] MEDS ORDERED: FENTANYL CITRATE INJ/PF 100 MCG/2 ML AMPUL IV ONE (03:53)
--- NOTE | 2018-03-20 03:57 | ER Document Report ---
ED General - General Chief Complaint: Chest Pain Stated Complaint: CHEST TIGHTNESS Time Seen by Provider: 03/20/18 03:53 TRAVEL OUTSIDE OF THE [place] IN LAST 30 DAYS: No - HPI Onset: Other - A 8-year-old male presents for evaluation of tightness in the chest which he has had since yesterday, initially this patient was responsive to nitroglycerin, he took one at home however and it did not seem to improve his symptoms. He denies any fevers chills recent illnesses trauma to the chest abdominal pain diarrhea constipation or dysuria says that the tightness has persisted despite using the nitroglycerin. He decided to call for help at that time. Denies any known history of hypercholesterolemia but does have significant cardiac family history as well as hypertension for which she is untreated at this time because of poor transportation. - Related Data Allergies/Adverse Reactions: lansoprazole [From Prevacid] Adverse Reaction (Verified 03/20/18 21:40) GI upset contrast dye Allergy (Uncoded 03/20/18 09:50) Hives Past Medical History - General Information source: Patient - Social History Smoking Status: Current Every Day Smoker Family History: CAD, CVA, Hypertension - Past Medical History Cardiac Medical History: Reports: Hx Congestive Heart Failure, Hx Hypertension GI Medical History: Reports: Hx Gastroesophageal Reflux Disease, Hx Hiatal Hernia, Hx Ulcer Musculoskeletal Medical History: Reports Hx Arthritis, Reports Hx Musculoskeletal Deformity, Reports Hx Musculoskeletal Trauma Skin Medical History: Reports Hx Cellulitis Past Surgical History: Reports: Hx Adenoidectomy, Hx Cardiac Catheterization, Hx Herniorrhaphy, Hx Inguinal Hernia, Hx Myringotomy, Hx Orthopedic Surgery - right knee, Hx Tonsillectomy, Other - Carpal tunnel surgery, - Immunizations Immunizations up to date: No Hx Diphtheria, Pertussis, Tetanus Vaccination: No Review of Systems - Review of Systems -: Yes All other systems reviewed and negative Physical Exam - Vital signs Vitals: Temp Pulse Resp BP Pulse Ox 99.0 F 97 22 H 170/95 H 94 03/20/18 04:13 03/20/18 04:13 03/20/18 04:13 03/20/18 04:13 03/20/18 04:13 Interpretation: Normal, Hypertensive - General General appearance: Alert In distress: Mild - HEENT Head: Normocephalic Eyes: Normal Conjunctiva: Normal Cornea: Normal Extraocular movements intact: Yes Eyelashes: Normal Pupils: PERRL - Respiratory Respiratory status: No respiratory distress Chest status: Nontender Breath sounds: Normal Chest palpation: Normal - Cardiovascular Rhythm: Regular Heart sounds: Normal auscultation Murmur: No - Abdominal Inspection: Normal Distension: No distension Tenderness: Nontender - Back Back: Normal - Extremities General upper extremity: Normal inspection, Nontender, Normal ROM, Normal strength General lower extremity: Normal inspection, Nontender, Normal ROM, Normal strength - Neurological Neuro grossly intact: Yes Cognition: Normal Orientation: AAOx4 Eagle Coma Scale Eye Opening: Spontaneous Rogerio Coma Scale Verbal: Oriented Eagle Coma Scale Motor: Obeys Commands Eagle Coma Scale Total: 15 Speech: Normal Cranial nerves: Normal Cerebellar coordination: Normal Motor strength normal: LUE, RUE, LLE, RLE - Psychological Associated symptoms: Normal affect Course - Re-evaluation Re-evalutation: 03/20/18 03:56 Patient with likely undiagnosed hyperlipidemia poorly treated hypertension. Patient presents with tightness in the chest, given the concern for potential developing ischemia will obtain EKG will obtain troponin times two-point for cardiac monitoring will administer fentanyl for pain control as patient was unresponsive to nitroglycerin. Patient's EKG does demonstrate what looks like ST segment depressions in lead V4 , V5, V6 more pronounced than previous EKG. We will plan for this patient to undergo admission to the hospital given his concerning history, concerning story, multiple risk factors and abnormal EKG. Conservatively his heart score is approximately 5. We will plan for repeat troponin, will plan for patient to undergo admission to the hospitalist service for continued monitoring and management. Delayed entry as a result of downtime of computer system Pending repeat troponin patient was admitted to the hospitalist and signed out to oncoming physician. They agreed to admission at this time, through his time in the emergency department he had no obvious events on compliance monitor. - Vital Signs Vital signs: Temp Pulse Resp BP Pulse Ox 98.3 F 71 16 138/75 H 98 03/22/18 17:09 03/22/18 17:09 03/22/18 17:09 03/22/18 17:09 03/22/18 17:09 - Laboratory Result Diagrams: 03/20/18 04:20 03/22/18 16:18 Laboratory results interpreted by me: 03/20/18 03/20/18 04:20 04:20 Hgb 13.3 L Seg Neutrophils % 81.1 H Lymphocytes % 10.5 L Sodium 135.3 L Chloride 96 L Discharge - Discharge Clinical Impression: Shortness of breath Chest pain Qualifiers: Chest pain type: unspecified Qualified Code(s): R07.9 - Chest pain, unspecified Condition: Stable Disposition: ADMITTED INPATIENT
[2018-03-20] MEDS ORDERED: FENTANYL CITRATE INJ/PF 100 MCG/2 ML AMPUL ONE (04:17)
--- NOTE | 2018-03-20 08:21 | EKG REPORT ---
SEVERITY:- ABNORMAL ECG - SINUS TACHYCARDIA NONSPECIFIC INTRAVENTRICULAR CONDUCTION DELAY : Confirmed by: Toan Trujillo MD 20-Mar-2018 07:39:04
--- NOTE | 2018-03-20 08:34 | RADIOLOGY REPORT (SQ) ---
EXAM DESCRIPTION: CHEST 2 VIEWS COMPLETED DATE/TIME: 03/20/2018 8:19 am REASON FOR STUDY: chest pain COMPARISON: AP chest 01/26/2017, 08/31/2013 CT angio chest 11/19/2016 EXAM PARAMETERS: NUMBER OF VIEWS: two views TECHNIQUE: Digital Frontal and Lateral radiographic views of the chest acquired. RADIATION DOSE: NA LIMITATIONS: none FINDINGS: LUNGS AND PLEURA: Pulmonary vascular congestion with mild interstitial edema. No pleural effusions or pneumothorax MEDIASTINUM AND HILAR STRUCTURES: No masses or contour abnormalities. HEART AND VASCULAR STRUCTURES: Mild cardiomegaly BONES: No acute findings. HARDWARE: None in the chest. OTHER: No other significant finding. IMPRESSION: Pulmonary vascular congestion with mild interstitial edema with Mona lines TECHNICAL DOCUMENTATION: JOB ID: [id number] [employer]- All Rights Reserved Reading location - IP/workstation name: [email or web address]
[2018-03-20 09:18] LABS: ABSOLUTE BASOPHILS # (AUTO) 0.1 10^3/uL (0.0-0.2); ABSOLUTE MONOCYTES (AUTO) 0.7 10^3/uL (0.1-1.4); ABSOLUTE NEUT (AUTO) 7.6 10^3/uL (1.7-8.2); BASOPHILS % (AUTO) 0.7 % (0-2); EOSINOPHILS % (AUTO) 0.5 % (0-6); HEMATOCRIT 39.6 % (37.9-51.0); HEMOGLOBIN 13.3 g/dL (13.5-17.0); LYMPHOCYTES % (AUTO) 10.5 % (13-45); MEAN CORPUSCULAR HEMOGLOBIN 27.8 pg (27.0-33.4); MEAN CORPUSCULAR HGB CONC 33.7 g/dL (32.0-36.0); MEAN CORPUSCULAR VOLUME 83 fl (80-97); MONOCYTES % (AUTO) 7.2 % (3-13); PLATELET COUNT 235 10^3/uL (150-450); RED CELL DISTRIBUTION WIDTH 13.4 % (11.5-14.0); SEGMENTED NEUTROPHILS % (AUTO) 81.1 % (42-78); TOTAL CELLS COUNTED % (AUTO) 100 %; WHITE BLOOD COUNT 9.3 10^3/uL (4.0-10.5)
[2018-03-20 09:30] LABS: ALANINE AMINOTRANSFERASE 26 U/L (21-72); ALBUMIN 3.6 g/dL (3.5-5.0); ALKALINE PHOSPHATASE 90 U/L (38-126); ANION GAP 12 (5-19); ASPARTATE AMINO TRANSFERASE 23 U/L (17-59); BILIRUBIN,DIRECT 0.4 mg/dL (0.0-0.4); BILIRUBIN,TOTAL 0.6 mg/dL (0.2-1.3); BLOOD UREA NITROGEN 13 mg/dL (7-20); CALCIUM 8.8 mg/dL (8.4-10.2); CARBON DIOXIDE 27 mmol/L (22-30); CHLORIDE 96 mmol/L (98-107); CREATINE KINASE 83 U/L (55-170); CREATINE KINASE MB 0.54 ng/mL (<4.55); GLUCOSE 101 mg/dL (75-110); POTASSIUM 4.3 mmol/L (3.6-5.0); SODIUM 135.3 mmol/L (137-145); TOTAL PROTEIN 6.6 g/dL (6.3-8.2); TROPONIN I 0.03 ng/mL
[2018-03-20] MEDS: ASPIRIN 81 MG TABLET, ENT COATED PO SCH (10:23)
--- NOTE | 2018-03-20 19:53 | XCELERA REPORT ---
[address] [address] Transthoracic Echocardiogram Report Name: CR TODD Age: 58 yrs Gender: Male : 1960 Patient Status: Inpatient Patient Location: [address] [place], [place] [id number] Study Date: 03/20/2018 11:31 AM Height: 70 in Weight: 360 lb BSA: 2.7 m2 Procedure: A complete two-dimensional transthoracic echocardiogram was performed (2D, M-mode, spectral and color flow Doppler). The study was technically difficult with many images being suboptimal in quality. Reason For Study: chest pain, pulmonary edema Ordering Physician: SHAHEEN MCHUGH Performed By: Ashwini Delgado Interpretation Summary Left ventricular systolic function is moderately reduced. The Ejection Fraction estimate is 40-45% The left ventricle is borderline dilated. There is mild concentric left ventricular hypertrophy. Doppler measurements suggest reversible restrictive left ventricular relaxation, which is associated with grade III/IV or moderate diastolic dysfunction There is mild to moderate global hypokinesis of the left ventricle. The right ventricular systolic function is normal. The right atrium is mild to moderately dilated. The left atrium is moderately dilated. There is a mild amount of mitral regurgitation There is no mitral valve stenosis. There is a trace amount of aortic regurgitation There is no aortic valve stenosis There is a trace or physiologic amount of tricuspid regurgitation Tricuspid regurgitation jet envelope not well defined to measure RV systolic pressure accurately. The aortic root is not well visualized. The inferior vena cava appeared normal and decreased > 50% with respiration (RAP 5-10 mmHg) There is no pericardial effusion. MMode/2D Measurements & Calculations RVDd: 3.8 cm LVIDd: 5.7 cm FS: 16.2 % EPSS: 1.8 cm IVSd: 1.2 cm LVIDs: 4.8 cm EDV(Teich): 159.7 ml LVPWd: 1.2 cm ESV(Teich): 106.1 ml EF(Teich): 33.5 % Ao root diam: 3.2 cm Ao root area: 8.0 cm2 LA dimension: 4.6 cm Doppler Measurements & Calculations MV E max dennise: MV P1/2t max dennise: Ao V2 max: LV V1 max P.2 cm/sec 100.7 cm/sec 151.3 cm/sec 4.0 mmHg MV A max dennise: MV P1/2t: 41.0 msec Ao max P.2 mmHgLV V1 max: 49.9 cm/sec MVA(P1/2t): 5.4 cm2 99.7 cm/sec MV E/A: 2.0 MV dec slope: 718.9 cm/sec2 MV dec time: 0.14 sec PA V2 max: TR max dennise: MV P1/2t-pr_phl: 86.9 cm/sec 217.2 cm/sec 41.0 msec PA max P.0 mmHg TR max P.9 mmHg Left Ventricle The left ventricle is borderline dilated. There is mild concentric left ventricular hypertrophy. Left ventricular systolic function is moderately reduced. The Ejection Fraction estimate is 40-45%. Doppler measurements suggest reversible restrictive left ventricular relaxation, which is associated with grade III/IV or moderate diastolic dysfunction. There is mild to moderate global hypokinesis of the left ventricle. Right Ventricle The right ventricle is grossly normal size. There is normal right ventricular wall thickness. The right ventricular systolic function is normal. Atria The right atrium is mild to moderately dilated. The left atrium is moderately dilated. Interarterial septum not well visualized and not well dopplered. Cannot comment on ASD/PFO presence. Mitral Valve The mitral valve leaflets are sclerotic, but show no functional abnormalities. There is no mitral valve stenosis. There is a mild amount of mitral regurgitation. Aortic Valve The aortic valve is not well visualized secondary to technical limitations. There is no aortic valve stenosis. There is a trace amount of aortic regurgitation. Tricuspid Valve The tricuspid valve is not well visualized secondary to technical limitations. There is no tricuspid stenosis. There is a trace or physiologic amount of tricuspid regurgitation. Tricuspid regurgitation jet envelope not well defined to measure RV systolic pressure accurately. Pulmonic Valve The pulmonic valve is not well visualized. Great Vessels The aortic root is not well visualized. The inferior vena cava appeared normal and decreased > 50% with respiration (RAP 5-10 mmHg). Effusions There is no pericardial effusion. : SHAHEEN MCHUGH > Amarilys Valdovinos
[2018-03-20] MEDS: HYDROCODONE/ACETAMINOPHEN 5-325 MG TABLET PO PRN (21:07)
--- NOTE | 2018-03-20 23:31 | PDOC CONSULTATION ---
Consultation Consult Date: 03/20/18 Attending physician:: TOÑA KULKARNI Consult reason:: Chest pain History of Present Illness Admission Date/PCP: 03/20/18 09:30 Patient complains of: Chest pain History of Present Illness: CR TODD is a 58 year old male admitted through the emergency room for evaluation of tightness in the chest which he has had since yesterday, initially this patient was responsive to nitroglycerin, he took one at home however and it did not seem to improve his symptoms. He denies any fevers chills recent illnesses trauma to the chest abdominal pain diarrhea constipation or dysuria says that the tightness has persisted despite using the nitroglycerin. He decided to call for help at that time. Denies any known history of hypercholesterolemia but does have significant cardiac family history as well as hypertension for which he is untreated at this time because of poor transportation. This history was reviewed. In addition, patient describes history of prior heart catheterization many years ago in a different state and was told that he has no blockages. Past Medical History Cardiac Medical History: Reports: Congestive Heart Failure, Hypertension GI Medical History: Reports: Gastroesophageal Reflux Disease, Hiatal Hernia Musculoskeltal Medical History: Reports: Arthritis Past Surgical History Past Surgical History: Reports: Cardiac Catheterization, Herniorrhaphy, Orthopedic Surgery - right knee, Tonsillectomy, Other - Carpal tunnel surgery, Social History Information Source: Patient Smoking Status: Former Smoker Frequency of Alcohol Use: None Hx Recreational Drug Use: No Drugs: None Hx Prescription Drug Abuse: No - Advance Directive Resuscitation Status: Full Code Family History Family History: CAD, CVA, Hypertension Parental Family History Reviewed: Yes Children Family History Reviewed: Yes Sibling(s) Family History Reviewed.: Yes Medication/Allergy Home Medications: Ranitidine HCl [Zantac 150 mg Tablet] 150 mg PO BID 01/27/17 Kratom 03/20/18 Allergies/Adverse Reactions: lansoprazole [From Prevacid] Adverse Reaction (Verified 03/20/18 21:40) GI upset contrast dye Allergy (Uncoded 03/20/18 09:50) Hives Review of Systems Review of Systems: Please see history of present illness and past medical history as wall. Constitutional: No fever or chills reported. Head : No recent chronic headaches, recent head injury. Eyes: No recent eye pain, diplopia, redness, discharge, acute visual changes. Ears: No recent chronic ear pain, acute hearing loss, ear discharge. Oral cavity: No recent ulcerations, bleeding, oral cavity discomfort. Neck: No recent acute neck pain reported. Hematologic: No recent easy bruising or bleeding. Lymphatic: No recent lymph node enlargement reported. Cardiovascular system review: See history of present illness. Respiratory system review: No hemoptysis or blood clots in the lungs reported. Shortness of breath on exertion Gastrointestinal system review: Negative for any recent acute hematemesis, melena. Genitourinary system review: No recent acute or chronic hematuria, flank pain, UTI etc. reported. Skin system review: Negative for any recent abnormal bruising, no rash, no pruritus reported. Neurologic: No prior history of strokes, mini strokes, seizure disorder. Psychologic: No history of major psychosis or major depression reported. Musculoskeletal: Minor aches and pains reported. No acute joint swelling reported. Patient has some difficulty with ambulation and walks with a cane. Endocrine: No recent polyuria, polydipsia, recent heat or cold intolerance. Physical Exam Vital Signs: Temp Pulse Resp BP Pulse Ox 97.7 F 82 19 178/87 H 97 03/20/18 19:28 03/20/18 19:28 03/20/18 19:28 03/20/18 19:28 03/20/18 19:28 Intake & Output 03/19/18 03/20/18 03/21/18 06:59 06:59 06:59 Intake Total 549 Output Total 1 Balance 548 Weight 151.2 kg Exam: GENERAL: well-nourished and in no acute distress. Alert and oriented x3 HEAD: Atraumatic, normocephalic. EYES: Pupils equal round and reactive to light, extraocular movements intact, sclera anicteric, conjunctiva are normal. ENT: TMs normal, nares patent, oropharynx clear without exudates. Moist mucous membranes. No oral ulcerations or bleeding gums noted NECK: supple without lymphadenopathy. Trachea is central. No cervical or axillary lymphadenopathy noted. Carotids are 2+, JVD WNL LUNGS: Respiration seems nonlabored, no significant accessory muscle action noted. Breath sounds clear to auscultation bilaterally and equal noted. No wheezes rales or rhonchi noted. No significant dullness noted on percussion. CHEST: Palpation of the chest wall shows no significant chest wall tenderness. HEART: [place] [employer], No PSH, 1/6 ASHLEIGH aortic area, 1/6 hall systolic murmur mitral area, no rubs, no gallops. ABDOMEN: Soft, no significant tenderness appreciated, normoactive bowel sounds. No guarding, no rebound. No rigidity noted . No masses appreciated. EXTREMITIES: Pedal pulses are 1-2+, no calf tenderness noted. No clubbing or cyanosis. 1+ pedal edema noted NEUROLOGICAL: Focused neurological exam showed no significant neurologic deficit. Normal speech, no focal weakness appreciated. PSYCH: Normal mood, normal affect. Judgment and insight within normal limits. SKIN: No significant ecchymosis, skin is noted to be warm. MUSCULOSKELETAL EXAM: No significant acute joint swelling noted. Results Laboratory Results: 03/20/18 15:44 Troponin I 0.024 EKG Comments: Sinus rhythm, no acute ST-T wave changes are noted Impressions: Chest X-Ray 03/20/18 03:54 IMPRESSION: Pulmonary vascular congestion with mild interstitial edema with Mona lines Assessment & Plan - Diagnosis (1) Chest pain Qualifiers: Chest pain type: unspecified Qualified Code(s): R07.9 - Chest pain, unspecified Is this a current diagnosis for this admission?: Yes (2) Congestive heart failure (CHF) Qualifiers: Qualified Code(s): I50.41 - Acute combined systolic (congestive) and diastolic (congestive) heart failure Is this a current diagnosis for this admission?: Yes (3) Essential hypertension Is this a current diagnosis for this admission?: Yes (4) Gastroesophageal reflux disease Qualifiers: Esophagitis presence: without esophagitis Qualified Code(s): K21.9 - Gastro -esophageal reflux disease without esophagitis Is this a current diagnosis for this admission?: Yes (5) Morbid obesity Is this a current diagnosis for this admission?: Yes (6) Shortness of breath Is this a current diagnosis for this admission?: Yes (7) Osteoarthritis of both knees Qualifiers: Osteoarthritis type: unspecified Qualified Code(s): M17.0 - Bilateral primary osteoarthritis of knee Is this a current diagnosis for this admission?: Yes - Notes Notes: Patient to be evaluated further with a 2D echocardiogram and nuclear stress test. These were scheduled. Chest pain: There are multiple differential diagnosis which includes cardiac ischemic syndrome, gastroesophageal reflux, possible pulmonary embolism, musculoskeletal pain etc. Feel that patient will benefit from nuclear stress test. This was scheduled. Patient also scheduled for a 2D echo for risk stratification. CHF: Have ordered a 2D echo. Further plans will follow results of 2D echo. Hypertension: Blood pressure goal should be 135/85 or less in this young gentleman. Obesity: Patient will benefit from gradual weight loss. This was explained. Gastroesophageal reflux: Patient will benefit from weight loss, other measures to reduce reflux symptoms. Osteoarthritis of the knee: Again weight loss will help. - Time Time Spent: 30 to 50 Minutes - More than 50% of the time spent coordinating care , discussing management plans with involved caregivers. Management plans discussed with involved personnels. Medical decision making was of moderate to high complexity, patient's has multiple comorbidities. Medications reviewed and adjusted accordingly: Yes
[2018-03-21] MEDS ORDERED: LANSOPRAZOLE 30 MG TAB.RAP.DR PO SCH (06:00)
--- NOTE | 2018-03-21 06:19 | PDOC H&P ---
History of Present Illness Admission Date/PCP: 03/20/18 09:30 History of Present Illness: CR TODD is a 58 year old male who states that he has been having significant chest discomfort and dyspnea. He states that the discomfort is like a tight band around his chest and is accompanied by shortness of breath. He states that he has had a couple of episodes of this discomfort. He states that the discomfort is a 3-7/10. It lasts 30 minutes to an hour. There are no provocative or palliative factors. There is no radiation. He is short of breath with it. He denies nausea, but admits that he is diaphoretic. Past Medical History Cardiac Medical History: Reports: Congestive Heart Failure, Hypertension GI Medical History: Reports: Gastroesophageal Reflux Disease, Hiatal Hernia Musculoskeltal Medical History: Reports: Arthritis Past Surgical History Past Surgical History: Reports: Cardiac Catheterization, Herniorrhaphy, Orthopedic Surgery - right knee, Tonsillectomy, Other - Carpal tunnel surgery, Social History Smoking Status: Former Smoker Frequency of Alcohol Use: None Hx Recreational Drug Use: No Drugs: None Hx Prescription Drug Abuse: No - Advance Directive Resuscitation Status: Full Code Family History Family History: CAD, CVA, Hypertension Parental Family History Reviewed: Yes Children Family History Reviewed: Yes Sibling(s) Family History Reviewed.: Yes Medication/Allergy Home Medications: Ranitidine HCl [Zantac 150 mg Tablet] 150 mg PO BID 01/27/17 Kratom 03/20/18 Allergies/Adverse Reactions: lansoprazole [From Prevacid] Adverse Reaction (Verified 03/20/18 21:40) GI upset contrast dye Allergy (Uncoded 03/20/18 09:50) Hives Review of Systems Constitutional: ABSENT: chills, fatigue, fever(s) Eyes: ABSENT: visual disturbances Ears: ABSENT: hearing changes Nose, Mouth, and Throat: ABSENT: headache(s), sore throat, vertigo Cardiovascular: PRESENT: chest pain, dyspnea on exertion, edema. ABSENT: orthropnea, palpitations Respiratory: PRESENT: dyspnea. ABSENT: cough, hemoptysis, sputum Gastrointestinal: ABSENT: constipation, diarrhea, dysphagia, nausea, vomiting Genitourinary: ABSENT: difficulty urinating, dysuria Musculoskeletal: ABSENT: deformity, joint swelling, muscle weakness Integumentary: ABSENT: lesions, rash, wounds Neurological: ABSENT: abnormal speech, confusion, frequent falls, paresthesias, syncope, vertigo Psychiatric: ABSENT: anxiety, depression Endocrine: ABSENT: cold intolerance, heat intolerance, polyphagia, polyuria Hematologic/Lymphatic: ABSENT: easy bleeding, easy bruising Physical Exam Vital Signs: Temp Pulse Resp BP Pulse Ox 97.5 F 68 15 162/85 H 98 03/21/18 03:35 03/21/18 03:35 03/21/18 03:35 03/21/18 03:35 03/21/18 03:35 Intake & Output 03/19/18 03/20/18 03/21/18 06:59 06:59 06:59 Intake Total 849 Output Total 1 Balance 848 Weight 151.2 kg General appearance: PRESENT: no acute distress, cooperative, morbidly obese Head exam: PRESENT: atraumatic, normocephalic Eye exam: PRESENT: EOMI, PERRLA. ABSENT: conjunctival injection, scleral icterus Ear exam: PRESENT: normal external ear exam. ABSENT: bleeding, drainage Mouth exam: PRESENT: moist, neck supple, tongue midline Neck exam: ABSENT: JVD, lymphadenopathy, tenderness, thyromegaly Respiratory exam: PRESENT: other - No increased work of breathing.. ABSENT: rales, rhonchi, wheezes Cardiovascular exam: PRESENT: RRR. ABSENT: gallop, systolic murmur Pulses: PRESENT: normal carotid pulses, normal dorsalis pedis pul GI/Abdominal exam: PRESENT: soft, other - The abdomen is morbidly obese. Bowel sounds are distant. I am unable to evaluate the abdomen for organomegaly, masses , or hernias due to the body habitus.. ABSENT: distended, tenderness Extremities exam: ABSENT: clubbing, joint swelling, pedal edema, tenderness Musculoskeletal exam: ABSENT: deformity, dislocation, normal inspection, tenderness Neurological exam: PRESENT: alert, awake, oriented to person, oriented to place , oriented to time, oriented to situation, CN II-XII grossly intact. ABSENT: motor sensory deficit Psychiatric exam: PRESENT: appropriate affect, normal mood Skin exam: PRESENT: dry, intact, warm Results Laboratory Results: 03/20/18 15:44 Troponin I 0.024 Impressions: Chest X-Ray 03/20/18 03:54 IMPRESSION: Pulmonary vascular congestion with mild interstitial edema with Mona lines Assessment & Plan - Diagnosis (1) Chest pain Qualifiers: Chest pain type: unspecified Qualified Code(s): R07.9 - Chest pain, unspecified (2) Congestive heart failure (CHF) Qualifiers: Qualified Code(s): I50.41 - Acute combined systolic (congestive) and diastolic (congestive) heart failure (4) Gastroesophageal reflux disease Qualifiers: Esophagitis presence: without esophagitis Qualified Code(s): K21.9 - Gastro -esophageal reflux disease without esophagitis (6) Osteoarthritis of both knees Qualifiers: Osteoarthritis type: unspecified Qualified Code(s): M17.0 - Bilateral primary osteoarthritis of knee - Time Time Spent: 50 to 70 Minutes Medications reviewed and adjusted accordingly: Yes - Inpatient Certification Based on my medical assessment, after consideration of the patient's comorbidities, presenting symptoms, or acuity I expect that the services needed warrant INPATIENT care.: No I certify that my determination is in accordance with my understanding of Medicare's requirements for reasonable and necessary INPATIENT services [42 CFR 412.3e].: No Medical Necessity: Significant Comorbidiites Make Outpatient Treatment Too Risky , Need Close Monitoring Due to Risk of Patient Decompensation, Risk of Complication if Not Cared For in Hospital - Plan Summary Plan Summary: The patient will be admitted to a telemetry bed. He will be ruled out for OK by EKG and enzyme criteria. Cardiology will be consulted and he will undergo a nuclear medicine stress test.
[2018-03-21] MEDS: ASPIRIN 81 MG TABLET, ENT COATED PO SCH (11:20)
[2018-03-21] MEDS: HYDROCODONE/ACETAMINOPHEN 5-325 MG TABLET PO PRN ×2 (11:20→19:46)
[2018-03-21] MEDS ORDERED: REGADENOSON INJ 0.4 MG/5 ML DISP.SYRIN IV ONE (14:58)
--- NOTE | 2018-03-21 23:11 | PDOC PROGRESS REPORT ---
Subjective Progress Note for:: 03/21/18 Subjective:: Patient had stress part performed today. He will have the rest part performed tomorrow. Patient currently is stable without any significant symptoms. Reason For Visit: CHEST TIGHTNESS Physical Exam Vital Signs: Temp Pulse Resp BP Pulse Ox 98.5 F 88 19 158/73 H 97 03/21/18 15:24 03/21/18 19:00 03/21/18 15:24 03/21/18 15:24 03/21/18 15:24 Intake & Output 03/20/18 03/21/18 03/22/18 06:59 06:59 06:59 Intake Total 849 474 Output Total 1 1 Balance 848 473 Weight 151.2 kg Exam: GENERAL: well-nourished and in no acute distress. Alert and oriented x3 HEAD: Atraumatic, normocephalic. EYES: Pupils equal round and reactive to light, extraocular movements intact, sclera anicteric, conjunctiva are normal. ENT: TMs normal, nares patent, oropharynx clear without exudates. Moist mucous membranes. No oral ulcerations or bleeding gums noted NECK: supple without lymphadenopathy. Trachea is central. No cervical or axillary lymphadenopathy noted. Carotids are 2+, JVD WNL LUNGS: Respiration seems nonlabored, no significant accessory muscle action noted. Breath sounds clear to auscultation bilaterally and equal noted. No wheezes rales or rhonchi noted. No significant dullness noted on percussion. CHEST: Palpation of the chest wall shows no significant chest wall tenderness. HEART: [place] [employer], No PSH, 1/6 ASHLEIGH aortic area, 1/6 hall systolic murmur mitral area, no rubs, no gallops. ABDOMEN: Soft, no significant tenderness appreciated, normoactive bowel sounds. No guarding, no rebound. No rigidity noted . No masses appreciated. EXTREMITIES: Pedal pulses are 1-2+, no calf tenderness noted. No clubbing or cyanosis. 1+ pedal edema noted NEUROLOGICAL: Focused neurological exam showed no significant neurologic deficit. Normal speech, no focal weakness appreciated. PSYCH: Normal mood, normal affect. Judgment and insight within normal limits. SKIN: No significant ecchymosis, skin is noted to be warm. MUSCULOSKELETAL EXAM: No significant acute joint swelling noted. Results Laboratory Results: 03/20/18 15:44 Troponin I 0.024 EKG Comments: Telemetry shows sinus rhythm without any sustained tachycardia or bradycardia Impressions: Chest X-Ray 03/20/18 03:54 IMPRESSION: Pulmonary vascular congestion with mild interstitial edema with [place] lines Assessment & Plan - Diagnosis (1) Chest pain Qualifiers: Chest pain type: unspecified Qualified Code(s): R07.9 - Chest pain, unspecified Is this a current diagnosis for this admission?: Yes (2) Congestive heart failure (CHF) Is this a current diagnosis for this admission?: Yes (3) Essential hypertension Is this a current diagnosis for this admission?: Yes (4) Gastroesophageal reflux disease Qualifiers: Esophagitis presence: without esophagitis Qualified Code(s): K21.9 - Gastro -esophageal reflux disease without esophagitis Is this a current diagnosis for this admission?: Yes (5) Morbid obesity Is this a current diagnosis for this admission?: Yes (6) Osteoarthritis of both knees Qualifiers: Osteoarthritis type: unspecified Qualified Code(s): M17.0 - Bilateral primary osteoarthritis of knee Is this a current diagnosis for this admission?: Yes (7) Shortness of breath Is this a current diagnosis for this admission?: Yes - Notes Notes: Patient generally stable. Patient medical regimen reviewed and is noted to be fairly satisfactory will try optimize this further. Patient to report any recurrence of chest pains. Chest pain: There are multiple differential diagnosis which includes cardiac ischemic syndrome, gastroesophageal reflux, possible pulmonary embolism, musculoskeletal pain etc. Feel that patient will benefit from nuclear stress test. Patient had the stress part performed today. Will have rest part tomorrow. Further assessment after the fold images are processed.. CHF: 2D echo shows combination of systolic and diastolic dysfunction. These were discussed with the patient discussed that treatment of sleep apnea and weight loss might help his heart condition.. Hypertension: Blood pressure goal should be 135/85 or less in this young gentleman. Obesity: Patient will benefit from gradual weight loss. This was explained. Gastroesophageal reflux: Patient will benefit from weight loss, other measures to reduce reflux symptoms. Osteoarthritis of the knee: Again weight loss will help. - Time Time with patient: Greater than 35 minutes - Patient was seen multiple times. In the morning nuclear stress test was explained to the patient in detail risk benefits were discussed. In the afternoon patient was seen just to confirm that he was doing fine after the stress test. 2D echo results were also discussed. Medications reviewed and adjusted accordingly: Yes
--- NOTE | 2018-03-22 08:50 | PDOC PROGRESS REPORT ---
Subjective Progress Note for:: 03/21/18 Subjective:: The patient states that he has had some minor feelings of chest tightness. Otherwise he has no new complaints. Reason For Visit: CHEST TIGHTNESS Physical Exam Vital Signs: Temp Pulse Resp BP Pulse Ox 99.3 F 90 14 182/109 H 98 03/22/18 07:42 03/22/18 07:42 03/22/18 07:42 03/22/18 07:42 03/22/18 07:42 Intake & Output 03/21/18 03/22/18 03/23/18 06:59 06:59 06:59 Intake Total 849 858 Output Total 1 1 Balance 848 857 Weight 151.2 kg General appearance: PRESENT: no acute distress, cooperative Respiratory exam: PRESENT: other - No increased work of breathing.. ABSENT: rales, rhonchi, wheezes Cardiovascular exam: PRESENT: RRR, other - No lateral PMI. No thrills.. ABSENT : gallop, rubs, systolic murmur Pulses: PRESENT: other - diminished distal pulses. GI/Abdominal exam: PRESENT: other - The abdomen is morbidly obese. Bowel sounds are distant. I am unable to evaluate the patient's abdomen for organomegaly, masses, or hernias cue to the patient's body habitus. Extremities exam: PRESENT: pedal edema. ABSENT: clubbing, tenderness Musculoskeletal exam: PRESENT: normal inspection. ABSENT: deformity, dislocation, tenderness Neurological exam: PRESENT: alert, awake, oriented to person, oriented to place , oriented to time, oriented to situation, CN II-XII grossly intact. ABSENT: motor sensory deficit Psychiatric exam: PRESENT: appropriate affect, normal mood Skin exam: PRESENT: dry, intact, warm Results Laboratory Results: 03/20/18 15:44 Troponin I 0.024 Impressions: Chest X-Ray 03/20/18 03:54 IMPRESSION: Pulmonary vascular congestion with mild interstitial edema with Mona lines Assessment & Plan - Diagnosis (1) Chest pain Qualifiers: Chest pain type: unspecified Qualified Code(s): R07.9 - Chest pain, unspecified Is this a current diagnosis for this admission?: Yes Plan: Part 2 of two day nuclear medicine scan tomorrow. (2) Congestive heart failure (CHF) Qualifiers: Qualified Code(s): I50.41 - Acute combined systolic (congestive) and diastolic (congestive) heart failure Is this a current diagnosis for this admission?: Yes Plan: Stable. Monitor volume status and continue home medications as necessary. (3) Essential hypertension Is this a current diagnosis for this admission?: Yes Plan: Add lisinopril and low dose beta archana. (4) Gastroesophageal reflux disease Qualifiers: Esophagitis presence: without esophagitis Qualified Code(s): K21.9 - Gastro -esophageal reflux disease without esophagitis Is this a current diagnosis for this admission?: Yes Plan: PPI (5) Morbid obesity Is this a current diagnosis for this admission?: Yes Plan: Lifestyle modification advised. (6) Osteoarthritis of both knees Qualifiers: Osteoarthritis type: unspecified Qualified Code(s): M17.0 - Bilateral primary osteoarthritis of knee Is this a current diagnosis for this admission?: Yes Plan: Limits mobility and activity (7) Shortness of breath Is this a current diagnosis for this admission?: Yes Plan: DDx: CHF exac, hypertensive heart disease, deconditioning. - Time Time Spent with patient: 25-34 minutes
[2018-03-22] MEDS: HYDROCODONE/ACETAMINOPHEN 5-325 MG TABLET PO PRN ×2 (09:27→17:28)
[2018-03-22] MEDS ORDERED: METOPROLOL TARTRATE 25 MG TABLET PO SCH (10:00)
[2018-03-22] MEDS ORDERED: FAMOTIDINE 20 MG TABLET PO SCH ×2 (10:00→22:00)
[2018-03-22] MEDS ORDERED: (PENDING PHARMACY ID) (Ranitidine Hcl [Zantac 150 Mg Tablet] 150 MG) PO SCH (10:00)
[2018-03-22] MEDS ORDERED: LISINOPRIL 10 MG TABLET PO SCH (10:00)
[2018-03-22] MEDS: ASPIRIN 81 MG TABLET, ENT COATED PO SCH (11:53)
--- NOTE | 2018-03-22 15:07 | DRAGON STRESS TEST REPORT ---
INTRAVENOUS LEXISCAN CARDIOLITE STRESS TEST USING SINGLE PHOTON EMMISION COMPUTERIZED TOMOGRAPHIC. DATE OF PROCEDURE: March 21, 2018, INDICATION : Chest pain CARDIAC RISK FACTORS: Hypertension RESTING EKG: Sinus rhythm, increased QRS voltage suggestive of LVH STRESS EKG: No significant ST segment changes noted with LexiScan bolus REASON FOR TERMINATION: Protocol. PROCEDURE REPORT: Baseline heart rate 93 beats per minute with blood pressure of 174/96. Patient had no significant complaints. Patient was bolused with Lexiscan 0.4 mg intravenously followed by saline bolus. Heart rate at 2 minutes post bolus 104 with a blood pressure of 159/94. 3 minutes post bolus heart rate 102 with blood pressure of 168/97. No significant EKG changes were noted. Patient had no significant complaints during the procedure or postprocedure. CONCLUSIONS: Normal EKG and hemodynamic response to IV LexiScan. NUCLEAR DATA: At rest the patient was given 42.6 millicuries of technetium 99 sestamibi injected intravenously. As per protocol rest gated SPECT images were obtained. On day of stress test, the patient was given intravenous LexiScan at a dose of 0.4 mg in 5 mL intravenously, followed by flush with normal saline. Subsequently the stress dose of 40.1 millicuries of technetium 99 sestamibi was injected intravenously. As per protocol stress gated images were obtained. NUCLEAR INTERPRETATION: Both raw and processed data were used for interpretation. Visual, qualitative, computer-generated quantitative data was used. There was good myocardial uptake of technetium compound. Motion artifact and soft tissue attenuations were noted. Increased visceral uptake was noted. Marked increased attenuation artifacts were also noted. No definitive areas of transient perfusion defect noted, except for mild decreased uptake in the mid anterior wall possibly consistent with probable mild ischemia. Moderate fixed defect noted mid inferior wall. EKG gated imaging showed LV EF at 31 %, rest and stress gated EF similar visually with diffuse hypokinesia noted and hypokinesia of the anterior wall.. T. I D. ratio was 1.03. Lung heart ratio noted to be within normal limits 0.37. No significant extracardiac and abnormal radiotracer activities were noted. RV free wall uptake was noted to be WNL. IMPRESSION: Also refer to comments under nuclear interpretation. Also test results needs to be interpreted in the context of pretest probability. 1. Mild decreased uptake noted in the mid anterior wall, consistent with probable mild ischemia however there was a lot of attenuation artifact also present, therefore confidence in this finding is low. 2. Small area of mid inferior wall moderate fixed defect, consistent with moderate scar in the mid inferior wall.. 3. EKG gated imaging shows left ventricular ejection fraction of approx. 31% % , mild diffuse hypokinesia. 4. Clinical correlation requested as worse disease and or balanced ischemia could be missed. In approximately 10% of the cases Lexiscan may not cause adequate vasodilatory stress. RECOMMENDATIONS: Aggressive risk factor modification and medical management. Further evaluation may be needed if continued symptoms or other high risk indicators are noted on clinical evaluation. Consider heart catheterization if significant symptoms. Close cardiology follow-up is also recommended. Clinical correlation with echocardiogram derived ejection fraction. Inability to exercise by itself can lead to increased cardiovascular event risks. Consider cardiology consultation and or follow-up if clinically indicated. I am available for cardiology evaluation and consultation if requested by the oil tester, unless patient already has a assembling machine operator. Dr. Rosa Maria Valdovinos. MRCP Board certified in cardiology and sleep medicine. Board certified in nuclear cardiology, adult echocardiography. BHARAT
--- NOTE | 2018-03-22 15:21 | PDOC PROGRESS REPORT ---
Subjective Progress Note for:: 03/22/18 Subjective:: Patient was seen multiple times. On morning rounds he denied any chest, neck discomfort. Patient subsequently had rest images performed. These results were evaluated with the patient. The image quality was technically difficult. It is felt that there could be a lot of artifacts. However nuclear images does suggest presence of fixed defect in the inferior wall and probable mild ischemia in the anterior wall. Overall confidence in the quality of stress test is low. At this point will recommend a CTA of the chest just to look for any coronary calcification. Patient does describe previous heart catheterization many years ago during which he was told that he had no blockages. Reason For Visit: CHEST TIGHTNESS Physical Exam Vital Signs: Temp Pulse Resp BP Pulse Ox 99.3 F 90 14 182/109 H 98 03/22/18 07:42 03/22/18 07:42 03/22/18 07:42 03/22/18 07:42 03/22/18 07:42 Intake & Output 03/21/18 03/22/18 03/23/18 06:59 06:59 06:59 Intake Total 849 858 Output Total 1 1 Balance 848 857 Weight 151.2 kg Exam: GENERAL: well-nourished and in no acute distress. Alert and oriented x3 HEAD: Atraumatic, normocephalic. EYES: Pupils equal round and reactive to light, extraocular movements intact, sclera anicteric, conjunctiva are normal. ENT: TMs normal, nares patent, oropharynx clear without exudates. Moist mucous membranes. No oral ulcerations or bleeding gums noted NECK: supple without lymphadenopathy. Trachea is central. No cervical or axillary lymphadenopathy noted. Carotids are 2+, JVD WNL LUNGS: Respiration seems nonlabored, no significant accessory muscle action noted. Breath sounds clear to auscultation bilaterally and equal noted. No wheezes rales or rhonchi noted. No significant dullness noted on percussion. CHEST: Palpation of the chest wall shows no significant chest wall tenderness. HEART: [place] CARBIDE GRINDER, No PSH, 1/6 ASHLEIGH aortic area, 1/6 hall systolic murmur mitral area, no rubs, no gallops. ABDOMEN: Soft, no significant tenderness appreciated, normoactive bowel sounds. No guarding, no rebound. No rigidity noted . No masses appreciated. EXTREMITIES: Pedal pulses are 1-2+, no calf tenderness noted. No clubbing or cyanosis. negative pedal edema noted NEUROLOGICAL: Focused neurological exam showed no significant neurologic deficit. Normal speech, no focal weakness appreciated. PSYCH: Normal mood, normal affect. Judgment and insight within normal limits. SKIN: No significant ecchymosis, skin is noted to be warm. MUSCULOSKELETAL EXAM: No significant acute joint swelling noted. Results Laboratory Results: 03/20/18 15:44 Troponin I 0.024 EKG Comments: Sinus rhythm no acute ST-T wave changes are noted. Impressions: Chest X-Ray 03/20/18 03:54 IMPRESSION: Pulmonary vascular congestion with mild interstitial edema with Mona lines Assessment & Plan - Diagnosis (1) Chest pain Qualifiers: Chest pain type: unspecified Qualified Code(s): R07.9 - Chest pain, unspecified Is this a current diagnosis for this admission?: Yes (2) Congestive heart failure (CHF) Is this a current diagnosis for this admission?: Yes (3) Essential hypertension Is this a current diagnosis for this admission?: Yes (4) Gastroesophageal reflux disease Qualifiers: Esophagitis presence: without esophagitis Qualified Code(s): K21.9 - Gastro -esophageal reflux disease without esophagitis Is this a current diagnosis for this admission?: Yes (5) Morbid obesity Is this a current diagnosis for this admission?: Yes - Notes Notes: Nuclear images were finished processing this afternoon. The image quality was technically difficult. It is felt that there were a lot of artifacts. However nuclear images does suggest presence of moderate fixed defect in the mid inferior wall, indicative of a scar and probable mild ischemia in the anterior wall. These were mostly shown on process data but raw data looked to be not significant. Overall confidence in the quality of stress test is low. At this point will recommend a CT of the chest just to look for any coronary calcification. Patient does describe previous heart catheterization many years ago during which she was told that he had no blockages. Chest pain: Possibly due to underlying CAD but that other competing causes in this gentleman who has significant obesity. Will obtain a plain CT of the chest. Patient claims allergy to contrast agent. Will also schedule patient for a VQ scan. CHF: Currently symptomatically stable. Will add diuretic therapy. Hypertension: Blood pressure is noted to be elevated. Will optimize therapy for better control of hypertension. Gastroesophageal reflux: Will switch patient to proton pump inhibitor. Morbid obesity: Patient will be helped by weight loss. This was explained. - Time Time with patient: Greater than 35 minutes - More than 50% of the time spent coordinating care, discussing management plans with involved caregivers. Management plans discussed with involved personnels. Medical decision making was of moderate to high complexity, patient's has multiple comorbidities. Medications reviewed and adjusted accordingly: Yes
--- NOTE | 2018-03-22 15:37 | PDOC PROGRESS REPORT ---
Subjective Progress Note for:: 03/22/18 Subjective:: The patient is seen following his stress test. He has had no further chest pain. Reason For Visit: CHEST TIGHTNESS Physical Exam Vital Signs: Temp Pulse Resp BP Pulse Ox 99.3 F 74 14 182/109 H 98 03/22/18 07:42 03/22/18 14:00 03/22/18 07:42 03/22/18 07:42 03/22/18 07:42 Intake & Output 03/21/18 03/22/18 03/23/18 06:59 06:59 06:59 Intake Total 849 858 Output Total 1 1 Balance 848 857 Weight 151.2 kg General appearance: PRESENT: no acute distress, cooperative, morbidly obese Respiratory exam: PRESENT: other - No increased work of breathing.. ABSENT: rales, rhonchi, wheezes Cardiovascular exam: PRESENT: RRR. ABSENT: gallop, rubs, systolic murmur GI/Abdominal exam: PRESENT: other - Morbidly obese abdomen. Bowel sounds are distant. I am unable to evaluate the abdomen for organomegaly, masses, or hernias. Extremities exam: ABSENT: clubbing, pedal edema, tenderness Neurological exam: PRESENT: alert, awake, oriented to person, oriented to place , oriented to time, oriented to situation, CN II-XII grossly intact. ABSENT: motor sensory deficit Skin exam: PRESENT: dry, intact, warm Results Laboratory Results: 03/20/18 15:44 Troponin I 0.024 Impressions: Chest X-Ray 03/20/18 03:54 IMPRESSION: Pulmonary vascular congestion with mild interstitial edema with [place] lines Assessment & Plan - Diagnosis (1) Chest pain Qualifiers: Chest pain type: unspecified Qualified Code(s): R07.9 - Chest pain, unspecified Is this a current diagnosis for this admission?: Yes Plan: I await the results of the patient stress test. The patient is anxious to go home. (2) Congestive heart failure (CHF) Qualifiers: Qualified Code(s): I50.41 - Acute combined systolic (congestive) and diastolic (congestive) heart failure Is this a current diagnosis for this admission?: Yes Plan: Stable. Monitor volume status and continue home medications as necessary. (3) Essential hypertension Is this a current diagnosis for this admission?: Yes Plan: Add lisinopril and low dose beta archana. (4) Gastroesophageal reflux disease Qualifiers: Esophagitis presence: without esophagitis Qualified Code(s): K21.9 - Gastro -esophageal reflux disease without esophagitis Is this a current diagnosis for this admission?: Yes (5) Morbid obesity Is this a current diagnosis for this admission?: Yes (6) Osteoarthritis of both knees Qualifiers: Osteoarthritis type: unspecified Qualified Code(s): M17.0 - Bilateral primary osteoarthritis of knee Is this a current diagnosis for this admission?: Yes (7) Shortness of breath Is this a current diagnosis for this admission?: Yes - Time Time Spent with patient: 25-34 minutes Medications reviewed and adjusted accordingly: Yes
[2018-03-22 16:00] VITALS: BP 138/75
[2018-03-22] MEDS ORDERED: LANSOPRAZOLE 30 MG TAB.RAP.DR PO SCH (17:00)
[2018-03-22 17:07] LABS: CHOLESTEROL 172.78 mg/dL (0-200); TRIGLYCERIDES 105 mg/dL (<150)
[2018-03-22 17:10] LABS: ALANINE AMINOTRANSFERASE 21 U/L (21-72); ALBUMIN 3.8 g/dL (3.5-5.0); ALKALINE PHOSPHATASE 83 U/L (38-126); ANION GAP 13 (5-19); ASPARTATE AMINO TRANSFERASE 22 U/L (17-59); BILIRUBIN,DIRECT 0.3 mg/dL (0.0-0.4); BILIRUBIN,TOTAL 0.3 mg/dL (0.2-1.3); BLOOD UREA NITROGEN 17 mg/dL (7-20); CALCIUM 8.9 mg/dL (8.4-10.2); CARBON DIOXIDE 31 mmol/L (22-30); CHLORIDE 93 mmol/L (98-107); GLUCOSE 81 mg/dL (75-110); POTASSIUM 4.6 mmol/L (3.6-5.0); SODIUM 136.5 mmol/L (137-145); TOTAL PROTEIN 6.9 g/dL (6.3-8.2)
--- NOTE | 2018-03-22 17:13 | PDOC DISCHARGE SUMMARY ---
General - Admit/Disc Date/PCP Admission Date/Primary Care Provider: 03/20/18 09:30 Discharge Date: 03/22/18 - Discharge Diagnosis (1) Chest pain Is this a current diagnosis for this admission?: Yes (2) Congestive heart failure (CHF) Is this a current diagnosis for this admission?: Yes (3) Essential hypertension Is this a current diagnosis for this admission?: Yes (4) Gastroesophageal reflux disease Is this a current diagnosis for this admission?: Yes (5) Morbid obesity Is this a current diagnosis for this admission?: Yes (6) Osteoarthritis of both knees Is this a current diagnosis for this admission?: Yes (7) Shortness of breath Is this a current diagnosis for this admission?: Yes - Additional Information Resuscitation Status: Full Code Discharge Diet: Cardiac Discharge Activity: Activity As Tolerated, No Driving - Today Prescriptions: Aspirin [Ecotrin 81 mg EC Tablet] 81 mg PO DAILY #30 tabec Atorvastatin Calcium [Lipitor 40 mg Tablet] 40 mg PO QHS #30 tablet Lisinopril [Prinivil 10 mg Tablet] 20 mg PO DAILY #30 tablet Metoprolol Succinate [Toprol Xl 25 mg Tab.sr] 25 mg PO Q12 #30 tab.sr.24h Home Medications: Ranitidine HCl [Zantac 150 mg Tablet] 150 mg PO BID 01/27/17 Aspirin [Ecotrin 81 mg EC Tablet] 81 mg PO DAILY #30 tabec 03/22/18 Atorvastatin Calcium [Lipitor 40 mg Tablet] 40 mg PO QHS #30 tablet 03/22/18 Lisinopril [Prinivil 10 mg Tablet] 20 mg PO DAILY #30 tablet 03/22/18 Metoprolol Succinate [Toprol Xl 25 mg Tab.sr] 25 mg PO Q12 #30 tab.sr.24h History of Present Illness History of Present Illness: CR TODD is a 58 year old male who states that he has been having significant chest discomfort and dyspnea. He states that the discomfort is like a tight band around his chest and is accompanied by shortness of breath. He states that he has had a couple of episodes of this discomfort. He states that the discomfort is a 3-7/10. It lasts 30 minutes to an hour. There are no provocative or palliative factors. There is no radiation. He is short of breath with it. He denies nausea, but admits that he is diaphoretic. Hospital Course Hospital Course: The patient was admitted to a telemetry bed. He was ruled out for VT by EKG and enzyme criteria. He underwent a two day protocol nuclear medicine stress test. Dr. Valdovinos was consulted. The patient's stress test was positive for underlying coronary artery disease. Dr. Valdovinos visited the patient and offered LHC to the patient who declined and preferred to pursue medical management only at this time. At the recommendation of Dr. Valdovinos I have discharged the patient on aspirin, statin, beta archana, and JESSIE Inhibitor. I will have the patient follow up with Dr. Valdovinos within a week at home. He wants to be discharged today to care for his animals at home. Physical Exam Vital Signs: Temp Pulse Resp BP Pulse Ox 98.3 F 71 16 138/75 H 98 03/22/18 15:22 03/22/18 15:22 03/22/18 15:22 03/22/18 15:22 03/22/18 15:22 Intake & Output 03/21/18 03/22/18 03/23/18 06:59 06:59 06:59 Intake Total 849 858 Output Total 1 1 Balance 848 857 Weight 151.2 kg General appearance: PRESENT: no acute distress, cooperative Respiratory exam: PRESENT: other - No increased work of breathing.. ABSENT: rales, rhonchi, wheezes Cardiovascular exam: PRESENT: RRR. ABSENT: gallop, rubs, systolic murmur GI/Abdominal exam: PRESENT: soft, other - The abdomen is morbidly obese. Bowel sounds are distant. I am unable to evaluate the abdomen for organomegaly, masses , or hernias due to his body habitus.. ABSENT: tenderness Extremities exam: PRESENT: +1 edema. ABSENT: clubbing, tenderness Musculoskeletal exam: PRESENT: normal inspection. ABSENT: deformity, dislocation, tenderness Neurological exam: PRESENT: alert, awake, oriented to person, oriented to place , oriented to time, oriented to situation, CN II-XII grossly intact. ABSENT: motor sensory deficit Psychiatric exam: PRESENT: appropriate affect, normal mood Skin exam: PRESENT: dry, intact, warm Results Laboratory Results: 03/20/18 15:44 Troponin I 0.024 Impressions: Chest X-Ray 03/20/18 03:54 IMPRESSION: Pulmonary vascular congestion with mild interstitial edema with Mona lines Qualifiers - * PATIENT BEING DISCHARGED WITH ANY OF THE FOLLOWING DIAGNOSIS: No
[2018-03-22 17:26] LABS: DIRECT LDL 96 mg/dL (<100)
[2018-03-22] MEDS ORDERED: ATORVASTATIN CALCIUM 40 MG TABLET PO SCH (22:00)
[2018-03-22] MEDS ORDERED: METOPROLOL SUCCINATE 25 MG TAB.SR.24H PO SCH (22:00)
== END 2018-03-22 18:19 | disposition home or self-care (01) ==
LOC: ER 03:43 → EH 09:30 → 4W 11:08
PROVIDERS: ADMIT Internal Medicine; ATTEND Internal Medicine
DX: R07.89 Other chest pain (principal); I11.0 Hypertensive heart disease with heart failure; I50.41 Acute combined systolic (congestive) and diastolic (congestive) heart failure; K21.9 Gastro-esophageal reflux disease without esophagitis; E66.01 Morbid (severe) obesity due to excess calories; M17.0 Bilateral primary osteoarthritis of knee; R06.02 Shortness of breath; I25.10 Atherosclerotic heart disease of native coronary artery without angina pectoris; R26.2 Difficulty in walking, not elsewhere classified; G89.29 Other chronic pain; M54.9 Dorsalgia, unspecified; R51 Headache; Z68.42 Body mass index [BMI] 45.0-49.9, adult; Z79.899 Other long term (current) drug therapy; Z79.82 Long term (current) use of aspirin; Z82.49 Family history of ischemic heart disease and other diseases of the circulatory system; Z98.890 Other specified postprocedural states; Z87.891 Personal history of nicotine dependence; Z91.041 Radiographic dye allergy status
CPT/HCPCS: 93005; 99285; 36415 ×2; 82553; 82550; 84443; 85025; 80053 ×2; 84484; 80061; 93306; 93017; 71046; 78452; 93010; A9500; J2785; A9270 ×9; Q9969

== ENCOUNTER 2018-03-31 18:55 | Emergency (ER) | payer MEDICARE ==
[2018-03-31] MEDS ORDERED: ASPIRIN 81 MG TABLET, CHEWABLE PO ONE (19:59)
[2018-03-31 20:09] LABS: ABSOLUTE BASOPHILS # (AUTO) 0.1 10^3/uL (0.0-0.2); ABSOLUTE EOSINOPHILS # (AUTO) 0.1 10^3/uL (0.0-0.6); ABSOLUTE LYMPHOCYTES (AUTO) 1.7 10^3/uL (0.5-4.7); ABSOLUTE MONOCYTES (AUTO) 0.7 10^3/uL (0.1-1.4); ABSOLUTE NEUT (AUTO) 5.9 10^3/uL (1.7-8.2); BASOPHILS % (AUTO) 1.1 % (0-2); EOSINOPHILS % (AUTO) 1.5 % (0-6); HEMATOCRIT 47.6 % (37.9-51.0); HEMOGLOBIN 16.1 g/dL (13.5-17.0); LYMPHOCYTES % (AUTO) 19.9 % (13-45); MEAN CORPUSCULAR HEMOGLOBIN 27.7 pg (27.0-33.4); MEAN CORPUSCULAR HGB CONC 33.8 g/dL (32.0-36.0); MEAN CORPUSCULAR VOLUME 82 fl (80-97); MONOCYTES % (AUTO) 8.4 % (3-13); PLATELET COUNT 381 10^3/uL (150-450); RED CELL DISTRIBUTION WIDTH 13.7 % (11.5-14.0); SEGMENTED NEUTROPHILS % (AUTO) 69.1 % (42-78); TOTAL CELLS COUNTED % (AUTO) 100 %; WHITE BLOOD COUNT 8.6 10^3/uL (4.0-10.5)
[2018-03-31 20:15] LABS: ALANINE AMINOTRANSFERASE 24 U/L (21-72); ALBUMIN 4.3 g/dL (3.5-5.0); ALKALINE PHOSPHATASE 114 U/L (38-126); ANION GAP 14 (5-19); ASPARTATE AMINO TRANSFERASE 24 U/L (17-59); BILIRUBIN,DIRECT 0.5 mg/dL (0.0-0.4); BILIRUBIN,TOTAL 0.7 mg/dL (0.2-1.3); BLOOD UREA NITROGEN 19 mg/dL (7-20); CALCIUM 9.8 mg/dL (8.4-10.2); CARBON DIOXIDE 23 mmol/L (22-30); CHLORIDE 99 mmol/L (98-107); CREATINE KINASE 82 U/L (55-170); GLUCOSE 102 mg/dL (75-110); POTASSIUM 4.7 mmol/L (3.6-5.0); SODIUM 135.5 mmol/L (137-145); TOTAL PROTEIN 7.6 g/dL (6.3-8.2)
--- NOTE | 2018-03-31 20:22 | ER Document Report ---
ED Medical Screen (RME) - General Chief Complaint: Chest Pain Stated Complaint: CHEST PAIN Time Seen by Provider: 03/31/18 19:59 Notes: 58 years old morbidly obese male presents today with sudden onset of left precordial chest pain 8/10 in intensity, and it subsided to 3/10 when he is resting. Not associated with any left arm numbness tingling sensation nausea vomiting palpitation or diaphoresis. He was recently discharged from the hospital after being treated for high blood pressure. Pain is increased on change of position. On examination morbid obesity reproducible chest wall tenderness over the left precordial region., TRAVEL OUTSIDE OF THE [place] IN LAST 30 DAYS: No - Related Data Allergies/Adverse Reactions: lansoprazole [From Prevacid] Adverse Reaction (Verified 03/31/18 19:57) GI upset contrast dye Allergy (Uncoded 03/31/18 19:57) Hives Past Medical History - Social History Frequency of alcohol use: None Drug Abuse: None Family history: Arthritis, CAD, CVA, DM, Hyperlipidemia, Hypertension, Malignancy, Thyroid Disfunction - Past Medical History Cardiac Medical History: Reports: Hx Congestive Heart Failure, Hx Hypertension Renal/ Medical History: Denies: Hx Peritoneal Dialysis GI Medical History: Reports: Hx Gastroesophageal Reflux Disease, Hx Hiatal Hernia, Hx Ulcer Musculoskeltal Medical History: Reports Hx Arthritis, Reports Hx Musculoskeletal Deformity, Reports Hx Musculoskeletal Trauma Skin Medical History: Reports Hx Cellulitis Past Surgical History: Reports: Hx Adenoidectomy, Hx Cardiac Catheterization, Hx Herniorrhaphy, Hx Inguinal Hernia, Hx Myringotomy, Hx Orthopedic Surgery - right knee, Hx Tonsillectomy, Other - Carpal tunnel surgery, - Immunizations Immunizations up to date: No Hx Diphtheria, Pertussis, Tetanus Vaccination: No History of Influenza Vaccine for 04/2017 - 09/2017 Season: Unknown Physical Exam - Vital signs Vitals: Temp Pulse Resp BP Pulse Ox 98.4 F 71 18 142/88 H 95 03/31/18 19:20 03/31/18 19:20 03/31/18 19:20 03/31/18 19:20 03/31/18 19:20 Course - Vital Signs Vital signs: Temp Pulse Resp BP Pulse Ox 98.4 F 71 18 142/88 H 95 03/31/18 19:20 03/31/18 19:20 03/31/18 19:20 03/31/18 19:20 03/31/18 19:20 - Laboratory Result Diagrams: 03/31/18 18:30 03/31/18 18:30 Laboratory results interpreted by me: 03/31/18 03/31/18 18:30 18:30 RBC 5.80 H Sodium 135.5 L Direct Bilirubin 0.5 H
[2018-03-31 20:27] LABS: CREATINE KINASE MB 0.55 ng/mL (<4.55)
[2018-03-31 20:36] LABS: TROPONIN I < 0.012 ng/mL
--- NOTE | 2018-03-31 20:43 | RADIOLOGY REPORT (SQ) ---
EXAM DESCRIPTION: CHEST SINGLE VIEW COMPLETED DATE/TIME: 03/31/2018 8:19 pm REASON FOR STUDY: chest pain COMPARISON: 03/20/2018 EXAM PARAMETERS: NUMBER OF VIEWS: One view. TECHNIQUE: Single frontal radiographic view of the chest acquired. RADIATION DOSE: NA LIMITATIONS: None. FINDINGS: LUNGS AND PLEURA: No opacities, masses or pneumothorax. No pleural effusion. MEDIASTINUM AND HILAR STRUCTURES: No masses. Contour normal. HEART AND VASCULAR STRUCTURES: Heart normal in size. Normal vasculature. BONES: No acute findings. HARDWARE: None in the chest. OTHER: No other significant finding. IMPRESSION: NO ACUTE RADIOGRAPHIC FINDING IN THE CHEST. TECHNICAL DOCUMENTATION: JOB ID: [id number]- All Rights Reserved Reading location - IP/workstation name: [email or web address]
--- NOTE | 2018-04-01 00:51 | ER Document Report ---
ED General - General Chief Complaint: Chest Pain Stated Complaint: CHEST PAIN Time Seen by Provider: 03/31/18 19:59 Notes: Patient is a 58-year-old male with CAD and obesity that presents to the emergency department for chief complaint of chest pain. Patient states that he has been having worsening shortness of breath, and exertional chest pain today. And even had some chest pain at rest he describes as left side, under the precordial area. He rates the pain as a 6 out of 10 at its at its worst, he had associated diaphoresis, but denies having any nausea or vomiting. He reports he was recently seen in the hospital, had a stress test of his heart, and it was recommended that he have a heart cath, but he did not want to wait to have it done and wanted to prepare for the storm so he went home, and since being discharged, he has been taking his antihypertensive medications that he was prescribed, but developed this chest pain today, and was concerned. He reports a history in his family particular concerning for early coronary disease , his mother had an IN that she from in her 30s, and brother had one in his 50s, and had to have CABG. Past Medical History: Hypertension, hyperlipidemia, obesity, osteoarthritis Past Surgical History: Knee surgery, hernia repair Social History: Former smoker, denies alcohol or drug use. Family History: Positive for CAD Allergies: Reviewed, see documented allergy list. REVIEW OF SYSTEMS: Unless otherwise stated in this report the patient's positive and negative responses for review of systems for constitutional, eyes, ENT, cardiovascular, respiratory, gastrointestinal, neurological, genitourinary, musculoskeletal, and integumentary systems and related systems to the presenting problem are either as stated in the HPI or were not pertinent or were negative for the symptoms and/or complaints related to the presenting medical problem. PHYSICAL EXAMINATION: Vital signs reviewed, nursing noted reviewed. GENERAL: Obese male, in no acute distress. HEAD: Atraumatic, normocephalic. EYES: Eyes appear normal, extraocular movements intact, sclera anicteric, conjunctiva are normal. ENT: nares patent, oropharynx clear without exudates. Moist mucous membranes. NECK: Normal range of motion, supple without lymphadenopathy LUNGS: Breath sounds clear to auscultation bilaterally and equal. No wheezes rales or rhonchi. HEART: Regular rate and rhythm without murmurs ABDOMEN: Soft, obese, nontender, normoactive bowel sounds. No rebound, guarding , or rigidity. No masses appreciated. EXTREMITIES: Nontender, good range of motion, no pitting or edema. NEUROLOGICAL: No focal neurological deficits. Moves all extremities spontaneously Motor and sensory grossly intact on exam. PSYCH: Normal mood, normal affect. SKIN: Warm, Dry, normal turgor, no rashes or lesions noted on exposed skin TRAVEL OUTSIDE OF THE [place] IN LAST 30 DAYS: No - Related Data Allergies/Adverse Reactions: lansoprazole [From Prevacid] Adverse Reaction (Verified 03/31/18 19:57) GI upset contrast dye Allergy (Uncoded 03/31/18 19:57) Hives Past Medical History - Social History Smoking Status: Former Smoker Frequency of alcohol use: None Drug Abuse: None Family History: CAD, CVA, Hypertension Patient has suicidal ideation: No Patient has homicidal ideation: No - Past Medical History Cardiac Medical History: Reports: Hx Congestive Heart Failure, Hx Hypertension Renal/ Medical History: Denies: Hx Peritoneal Dialysis GI Medical History: Reports: Hx Gastroesophageal Reflux Disease, Hx Hiatal Hernia, Hx Ulcer Musculoskeletal Medical History: Reports Hx Arthritis, Reports Hx Musculoskeletal Deformity, Reports Hx Musculoskeletal Trauma Skin Medical History: Reports Hx Cellulitis Past Surgical History: Reports: Hx Adenoidectomy, Hx Cardiac Catheterization, Hx Herniorrhaphy, Hx Inguinal Hernia, Hx Myringotomy, Hx Orthopedic Surgery - right knee, Hx Tonsillectomy, Other - Carpal tunnel surgery, - Immunizations Immunizations up to date: No Hx Diphtheria, Pertussis, Tetanus Vaccination: No Physical Exam - Vital signs Vitals: Temp Pulse Resp BP Pulse Ox 98.4 F 71 18 142/88 H 95 03/31/18 19:20 03/31/18 19:20 03/31/18 19:20 03/31/18 19:20 03/31/18 19:20 Course - Re-evaluation Re-evalutation: Patient seen and examined vital signs reviewed. Laboratory data and imaging were ordered as appropriate for the patient's presenting symptoms and complaint, with consideration of any critical or life threatening conditions that may be associated with their obtained history and exam as noted above. Patient was treated with aspirin, and started on heparin bolus and drip after discussing with [facility] interventional cardiology team, patient also given nitroglycerin Results were reviewed when available and demonstrated negative troponin, EKG had a slight ST depression in lead III, and the 5 and V6, otherwise no other ischemic changes The patient was re-evaluated and was still having some chest pain, this is when he was given nitroglycerin as noted above Evaluation was most consistent with unstable angina, given significant history, recent positive stress test, I feel that the patient needs to be seen more emergently, at a tertiary center that can perform cardiac catheterization, which she cannot obtain at this hospital at this time. I discussed with the patient at length the risks and benefits of being transferred, and he agreed to be transferred, I placed several calls out, to multiple institutions, and [facility] did accept the patient graciously. Results were discussed with the patient at this point after careful consideration I feel that that patient should be transferred to [facility] due to need for cardiac catheterization team, admitted to Dr Ahn, discussed with the fellow Dr. Marquez. This was discussed with the patient that it is in the best interest for their care to be transferred, the risks and benefits of transfer were discussed, including but not limited to clinical deterioration during transport, respiratory distress, and potential for traumatic injuries. Patient agreed with this plan of care. *Note is created using voice recognition software and may contain spelling, syntax or grammatical errors. Laboratory 03/31/18 03/31/18 03/31/18 18:30 18:30 18:30 WBC 8.6 RBC 5.80 H Hgb 16.1 Hct 47.6 MCV 82 MCH 27.7 MCHC 33.8 RDW 13.7 Plt Count 381 Seg Neutrophils % 69.1 Lymphocytes % 19.9 Monocytes % 8.4 Eosinophils % 1.5 Basophils % 1.1 Absolute Neutrophils 5.9 Absolute Lymphocytes 1.7 Absolute Monocytes 0.7 Absolute Eosinophils 0.1 Absolute Basophils 0.1 PT INR APTT Sodium 135.5 L Potassium 4.7 Chloride 99 Carbon Dioxide 23 Anion Gap 14 BUN 19 Creatinine 0.90 Est GFR ( Amer) > 60 Est GFR (Non-Af Amer) > 60 Glucose 102 Calcium 9.8 Total Bilirubin 0.7 Direct Bilirubin 0.5 H Neonat Total Bilirubin Not Reportable Neonat Direct Bilirubin Not Reportable Neonat Indirect Bili Not Reportable AST 24 ALT 24 Alkaline Phosphatase 114 Creatine Kinase 82 CK-MB (CK-2) 0.55 Troponin I < 0.012 Total Protein 7.6 Albumin 4.3 04/01/18 04/01/18 00:50 02:50 WBC RBC Hgb Hct MCV MCH MCHC RDW Plt Count Seg Neutrophils % Lymphocytes % Monocytes % Eosinophils % Basophils % Absolute Neutrophils Absolute Lymphocytes Absolute Monocytes Absolute Eosinophils Absolute Basophils PT 13.9 INR 1.02 APTT 29.2 Sodium Potassium Chloride Carbon Dioxide Anion Gap BUN Creatinine Est GFR ( Amer) Est GFR (Non-Af Amer) Glucose Calcium Total Bilirubin Direct Bilirubin Neonat Total Bilirubin Neonat Direct Bilirubin Neonat Indirect Bili AST ALT Alkaline Phosphatase Creatine Kinase CK-MB (CK-2) Troponin I < 0.012 Total Protein Albumin Chest X-Ray 03/31/18 19:59 IMPRESSION: NO ACUTE RADIOGRAPHIC FINDING IN THE CHEST. - Vital Signs Vital signs: Temp Pulse Resp BP Pulse Ox 98.4 F 71 16 153/99 H 98 03/31/18 19:20 03/31/18 19:20 04/01/18 03:01 04/01/18 03:16 04/01/18 03:01 - Laboratory Result Diagrams: 03/31/18 18:30 03/31/18 18:30 Laboratory results interpreted by me: 03/31/18 03/31/18 18:30 18:30 RBC 5.80 H Sodium 135.5 L Direct Bilirubin 0.5 H - EKG Interpretation by Me Additional EKG results interpreted by me: EKG demonstrates normal sinus rhythm with a ventricular rate of 77 bpm, normal axis, normal intervals, slight st depressions in lead II, V5 and V6, no other ischemic changes noted. Discharge - Discharge Clinical Impression: Unstable angina Chest pain Qualifiers: Chest pain type: unspecified Qualified Code(s): R07.9 - Chest pain, unspecified Condition: Serious Disposition: [facility]
[2018-04-01] MEDS ORDERED: HEPARIN SOD (PORCINE) 1,000 UNIT/ML 10 ML VIAL IV ONE (02:29)
[2018-04-01] MEDS ORDERED: HEPARIN SODIUM,PORCINE/D5W 25,000 UNIT/250 ML RTUINJ IV PRN (02:29)
[2018-04-01] MEDS: NITROGLYCERIN 0.4 MG/TAB 25 TAB/BOTTLE SL PRN ×2 (03:01→03:12)
[2018-04-01 03:17] LABS: INTERNATIONAL RATION (INR) 1.02; PROTHROMBIN TIME 13.9 SEC (11.4-15.4)
[2018-04-01 03:18] LABS: PARTIAL THROMBOPLASTIN TIME 29.2 SEC (23.5-35.8)
[2018-04-01 10:18] LABS: INTERNATIONAL RATION (INR) 1.02; PROTHROMBIN TIME 13.9 SEC (11.4-15.4)
--- NOTE | 2018-04-01 12:57 | ER Document Report ---
Doctor's Note Notes: 04/01/18 16:35 Discussed patient's case with our cardiology button riveter recommends continue with statin also addition of Ranexa. These medications have been added patient continues complaining of some lower back pain morphine has been added as well along with Nitropaste. Currently earlier this morning at to [facility] abatacept incision recommended by the transfer team at [facility] to call other facilities. We have been in between at [facility] and [facility] in trying to establish transportation and care for this patient as that the local [facility] has caused multiple transportation issues. 04/01/18 16:[address] [facility] [address] Garcia agreed to accept the patient. And [facility] to the hospital with a due care group is currently at this time agreed to take the patient back to take for further evaluation. Currently pending confirmation. 04/01/18 17:20 [facility] flight team has agreed to take the patient to [facility]
[2018-04-01] MEDS ORDERED: NITROGLYCERIN 2% OINTMENT 1 GM PACKET TP ONE (12:59)
[2018-04-01] MEDS ORDERED: MORPHINE SULFATE 10 MG/ML INJ IV PRN (12:59)
[2018-04-01] MEDS ORDERED: ASPIRIN 81 MG TABLET, CHEWABLE PO ONE (13:13)
[2018-04-01] MEDS ORDERED: ATORVASTATIN CALCIUM 80 MG TABLET PO SCH (13:15)
[2018-04-01] MEDS ORDERED: RANOLAZINE 500 MG TAB.SR.12H PO SCH (14:00)
[2018-04-01 15:32] LABS: ABSOLUTE BASOPHILS # (AUTO) 0.1 10^3/uL (0.0-0.2); ABSOLUTE EOSINOPHILS # (AUTO) 0.1 10^3/uL (0.0-0.6); ABSOLUTE LYMPHOCYTES (AUTO) 1.8 10^3/uL (0.5-4.7); ABSOLUTE MONOCYTES (AUTO) 0.8 10^3/uL (0.1-1.4); ABSOLUTE NEUT (AUTO) 5.5 10^3/uL (1.7-8.2); BASOPHILS % (AUTO) 1.4 % (0-2); EOSINOPHILS % (AUTO) 1.6 % (0-6); HEMATOCRIT 43.9 % (37.9-51.0); HEMOGLOBIN 14.8 g/dL (13.5-17.0); LYMPHOCYTES % (AUTO) 21.7 % (13-45); MEAN CORPUSCULAR HEMOGLOBIN 27.9 pg (27.0-33.4); MEAN CORPUSCULAR HGB CONC 33.8 g/dL (32.0-36.0); MEAN CORPUSCULAR VOLUME 83 fl (80-97); MONOCYTES % (AUTO) 9.6 % (3-13); PLATELET COUNT 336 10^3/uL (150-450); RED BLOOD COUNT 5.31 10^6/uL (4.35-5.55); RED CELL DISTRIBUTION WIDTH 13.4 % (11.5-14.0); SEGMENTED NEUTROPHILS % (AUTO) 65.7 % (42-78); TOTAL CELLS COUNTED % (AUTO) 100 %; WHITE BLOOD COUNT 8.4 10^3/uL (4.0-10.5)
--- NOTE | 2018-04-01 15:32 | EKG REPORT ---
SEVERITY:- BORDERLINE ECG - SINUS RHYTHM BORDERLINE T WAVE ABNORMALITIES : Confirmed by: Sruthi Laureano MD 01-Apr-2018 15:31:35
--- NOTE | 2018-04-01 15:32 | EKG REPORT ---
SEVERITY:- BORDERLINE ECG - SINUS RHYTHM BORDERLINE T WAVE ABNORMALITIES : Confirmed by: Sruthi Laureano MD 01-Apr-2018 15:31:39
[2018-04-01 15:51] LABS: ANION GAP 10 (5-19); BLOOD UREA NITROGEN 22 mg/dL (7-20); CALCIUM 9.3 mg/dL (8.4-10.2); CARBON DIOXIDE 25 mmol/L (22-30); CHLORIDE 99 mmol/L (98-107); GLUCOSE 95 mg/dL (75-110); POTASSIUM 4.6 mmol/L (3.6-5.0); SODIUM 133.9 mmol/L (137-145)
[2018-04-01 16:04] VITALS: BP 135/83
== END 2018-04-01 17:42 | disposition short-term general hospital (02) ==
LOC: ER 18:55
DX: I25.110 Atherosclerotic heart disease of native coronary artery with unstable angina pectoris (principal); I10 Essential (primary) hypertension; E66.9 Obesity, unspecified; Z87.891 Personal history of nicotine dependence
CPT/HCPCS: 93005 ×2; 96376; 99285; 96365; 96366; 36415; 82553; 82550; 85025; 85610; 85730; 80048; 80053; 84484; 71045; 93010 ×2; J1644 ×2; A9270 ×4; J2270